=== PATIENT | female | born 1980 | race Caucasian/White ===

== ENCOUNTER 2024-09-22 07:54 | Outpatient (CLI) | payer OTHER, SELFPAY ==
--- OUTSIDE RECORDS SUMMARY | 2024-09-22 08:03 | XMS_ITS ---
Author Organization [facility] Address [address] [place] [address] Care Team Providers Care Casting Inspector Name Role Phone Ryan Ceballos MD Primary Care Provider Unavail Cee Pereira Unavailable [phone] REASON FOR VISIT Rx Medications Medication SIG (Take, Route, Frequency, Duration) Notes Start Date End Date Status XYZAL 5 mg 1 tablet PO daily for 90 days Active Encounters Encounter Location Date Provider Diagnosis [address] [address] 07/08/2024 Cee Jose Allergic rhinitis due to pollen J30.1 Assessments Encounter Date Diagnosis (ICD Code) Assessment Notes Treatment Notes Treatment Clinical Notes Section Notes 07/08/2024 Allergic rhinitis due to pollen (ICD-10 - J30.1) Plan Of Treatment Medication Medication Name Sig Start Date Stop Date Notes XYZAL 5 mg 1 tablet PO daily for 90 days Progress Notes * Colby REZA: 9 (44 yo F)Acc No.[id number]:07/08/2024 Patient: Mariam FORD :1980 A ge:44 Y S ex:Female Address:[address] [place] [address] * Refills Refill XYZAL tablet, 5 mg, PO, 90, 1 tablet, daily, 90 days, Refills=1 * true * Date: Generated for Rosmery kimball/Preeti/Dimasitting on: 0 09/22/2024 08:03 AM OUTSOLE PARAFFINER
--- OUTSIDE RECORDS SUMMARY | 2024-09-22 08:03 | XMS_ITS | Data Portability ---
Author Organization [place] - [facility] [employer], Main Office Address [address] [place] [address] Care Team Providers Care Shingle Packer Name Role Phone STEFFEN PEREZ Primary Care Provider [phone] Assessment No assessment recorded. Plan of Treatment Reminders Order Date Submit Date Provider Last Modified By Organization Details Last Modified Time Details Appointments None recorded. Lab None recorded. Referral endocrinol ogy referral [address] [facility] Endocrinology [facility], [place], [address], 09:33:06 Procedures None recorded. Surgeries None recorded. Imaging None recorded. Medication Orders spironolac tone 100 mg tablet 2022 023 [id number], [address], [address], 09:23:58 Patient TargetsNo targets recorded. Patient InstructionsNo instructions recorded. Reason for Referral Endocrinology Referral for H ashimoto thyroiditis Referring Physician: Shoshana Muñoz, Endocrinology, Encounter Date: 05/11/2023 Results Created Date Observation Date Name Description Value Unit Range Abnormal Flag Note LastModifiedBy Organization Detail LastModifiedTime 07/07/2007/05/2022 US, thyro id No observ ation record ed. [id number] [facility]) [address] [place] [address] [address], [place], [address], 09/27/2022 02:52:04 09/13/1909/05/2022 home sleep study No observ ation record ed. [id number] [facility] (Cardiology) [address], [place], [address], 09/27/2022 02:52:04 Result Notes None recorded. 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 Procedures Surgical History Date Name Laterality Status Provider Name and Address Organization Details Recorded Time 12/03/19 09 delivery completed Not Available [facility] 09/27/2022 02:40:33 09/20/19 05 delivery completed Not Available [facility] 09/27/2022 02:40:33 02/05/20 03 delivery completed Not Available [facility] 09/27/2022 02:40:33 hysteroscopy completed Not Available [facility] 09/27/2022 02:40:33 biopsy of thyroid completed Not Available [facility] 09/27/2022 02:40:33 excision of basal cell carcinoma completed Not Available [facility] 09/27/2022 02:40:33 Unlisted procedure nose completed Not Available [facility] 09/27/2022 02:40:33 Imaging Results Imaging Date Name Status LastModified by Organiz ation Details LastModified Time 09/05/2022 home sleep study completed [id number] [facility] (Cardiology) [address], [place], [address], 09/27/2022 02:52:04 07/05/2022 US, thyroid completed [id number] [facility]) [address], [place], [address], 09/27/2022 02:52:04 Procedure Notes None recorded. Medical Equipment None Reported. Allergies Allergen ID Allergen Name Allergen Category Reaction Reaction Severity Criticality Documentation Date Start Date Code Code System Note Provider Name and Address Organization Details Recorded Time 3964 aspirin medicatio n Not available Not available Not available 09/27/2022 1191 RxNorm HIGH DOSE OF ASPIR IN OVER 81MG Not Available [facility] 02:51:42 Medications Name Sig Start Date Stop Date Status Note LastModified by Organization Details LastModified Time tretinoin 0.045%, hydroquino ne 6%, desonide 0.05%, kojic acid 4% top gel AFFECTED AREA DARK SPOTS face daily for TWO MONTHS 05/11 completed Not Available Not Available Not Available amoxicilli n 500 mg capsule TAKE 2 CAPSULES EVERY DAY BY ORAL ROUTE DIRECTED FOR 10 DAYS. 05/11 completed Not Available Not Available Not Available Aviane 0.1 mg-20 mcg tablet 05/11 completed Not Available Not Available Not Available prednisone 10 mg tablet PLEASE SEE ATTACHED FOR DETAILED DIRECTIO NS 06/28 completed Not Available Not Available Not Available ketoconazo le 2 % shampoo SHAMPOO 2-3X WEEK ON AFFECTED AREAS OF THE SCALP IN SHOWER active Not Available Not Available No t Available famotidine 10 mg tablet Take 1 tablet every day by oral route. 2019 active PEPCID Not Available Not Available Not Avai lable ibuprofen 800 mg tablet 03/29 completed Not Available Not Available Not Available hydrocodon e 5 mg-acetami nophen 325 mg tablet TAKE 1 TABLET BY MOUTH EVERY 4 HOURS NEEDED FOR PAIN 05/11 completed Not Available Not Available Not Available fluconazol e 200 mg tablet TAKE 1 TABLET BY MOUTH EVERY DAY active Not Available Not Available No t Available meloxicam 15 mg tablet TAKE 1 TABLET BY MOUTH EVERY DAY 06/19 completed Not Available Not Available Not Available naltrexone 50 mg tablet TAKE 1 TABLET BY MOUTH AT BEDTIME 05/11 completed Not Available Not Available Not Available ondansetro n HCl 4 mg tablet TAKE 1 TABLET BY MOUTH 1 HOUR PRIOR TO PROCEDUR E 03/29 completed Not Available Not Available Not Available spironolac tone 100 mg tablet one tablet once daily x 90 days 2022 active Not Available Not Available Not Avai lable phentermin e 15 mg capsule TAKE 1 CAPSULE BY MOUTH EVERY DAY 09/20 completed Not Available Not Available Not Available metronidaz ole 500 mg tablet TAKE 1 TABLET BY MOUTH THREE TIMES A DAY FOR 7 DAYS 05/11 completed Not Available Not Available Not Available ciprofloxa sandra 500 mg tablet TAKE 1 TABLET BY MOUTH TWICE A DAY FOR 7 DAYS 05/11 completed Not Available Not Available Not Available propranolo l 10 mg tablet TAKE 1 TABLET BY MOUTH THREE TIMES A DAY NEEDED 05/11 completed Not Available Not Available Not Available dicyclomin e 20 mg tablet TAKE 1 TABLET (20 MG TOTAL) BY MOUTH EVERY 6 HOURS NEEDED FOR ABDOMINA L PAIN active Not Available Not Available No t Available omeprazole 20 mg capsule,de layed release TAKE 1 CAPSULE BY MOUTH EVERY DAY BEFORE BREAKFAS T active Not Available Not Available No t Available folic acid 1 mg tablet TAKE 1 TABLET BY MOUTH EVERY DAY IN THE MORNING active Not Available Not Available No t Available mupirocin 2 % topical ointment MIX 1/2 1 INCH OF OINTMENT WITH SALINE AND IRRIGATE SINUSES NASALLY 2 3 TIMES A DAY 5 DAY(S) 06/28 completed Not Available Not Available Not Available metoprolol succinate ER 25 mg tablet,ext ended release 24 hr TAKE 1 TABLET (25 MG TOTAL) BY MOUTH DAILY. active Not Available Not Available No t Available azelastine 137 mcg (0.1 %) nasal spray SPRAY 2 SPRAYS INTO EACH NOSTRIL TWICE A DAY FOR 30 DAYS active Not Available Not Available No t Available fluocinoni de 0.05 % topical solution APPLY TO THE SCALP EVERY DAY AT BEDTIME FOR TWO WEEKS NEEDED active Not Available Not Available No t Available clobetasol 0.05 % scalp solution APPLY TO RASH ON SCALP NIGHTLY X 2 WEEKS NEEDED active Not Available Not Available No t Available ondansetro n 4 mg disintegra ting tablet TAKE 1 TABLET BY MOUTH EVERY 8 HOURS NEEDED FOR NAUSEA AND VOMITING 05/11 completed Not Available Not Available Not Available fluticason e propionate 50 mcg/actuat ion nasal spray,susp ension 06/28 completed Not Available Not Available Not Available metformin ER 500 mg tablet,ext ended release 24 hr 1 TAB BID 09/20 completed Not Available Not Available Not Available diazepam 5 mg tablet TAKE 3 TABLETS BY MOUTH 1 HOUR BEFORE PROCEDUR E, THEN EVERY 6 HOURS NEEDED 03/29 completed Not Available Not Available Not Available amoxicilli n 875 mg-potassi um clavulanat e 125 mg tablet TAKE 1 TABLET BY MOUTH TWICE A DAY FOR 10 DAYS 05/11 completed Not Available Not Available Not Available Kariva (28) 0.15 mg-0.02 mg (21)/0.01 mg (5) tablet TAKE 1 TABLET BY MOUTH EVERY DAY 05/11 completed Not Available Not Available Not Available Capsule #3 capsule 05/11 completed Not Available Not Available Not Available levocetiri zine 5 mg tablet Once daily active Not Available Not Available No t Available naltrexone HCl (bulk) 100 % powder take 1 mg by mouth once daily at bedtime 05/11 completed Not Available Not Available Not Available olopatadin e 0.6 % nasal spray 03/29 completed Not Available Not Available Not Available sodium,pot assium,mag sulfates 17.5 gram-3.13 gram-1.6 gram oral soln PLEASE SEE ATTACHED FOR DETAILED DIRECTIO NS 05/11 completed Not Available Not Available Not Available Fluzone Quad (PF) 60 mcg (15 mcg x 4)/0.5 mL IM syringe TO BE ADMINIST ERED BY PHARMACI ST FOR IMMUNIZA TION 05/11 completed Not Available Not Available Not Available Flublok Quad (PF) 180 mcg (45 mcg x 4)/0.5 mL IM syringe PHARMACY ADMINIST ERED 05/11 completed Not Available Not Available Not Available Vitals Date Recorded Body height Body mass index (BMI) Body weight Body temperature Respiratory rate Heart rate Systolic blood pressure Diastolic blood pressure Provider Name and Address Organization Details Last Updated DateTime 162.56 cm 23.7 kg/m2 30923.7 5 g 98.2 [degF] 12 /min 84 /min 99 mm[Hg] 73 mm[Hg] Mandy Son RN [place] [facility] 3 09:08:46 Date Recorded Body mass index (BMI) Body height Oxygen saturation Oxygen saturation in Arterial blood by Pulse oximetry Heart rate Body temperature Body weight Systolic blood pressure Diastolic blood pressure Provider Name and Address Organization Details Last Updated DateTime 2 22.4 kg/m2 162.56 cm 98 % 98 % 88 /min 98.5 [degF] 91539.1 6 g 125 mm[Hg] 85 mm[Hg] Not Available [facility] 3 02:44:03 Social History Question Answer Notes LastModified by Organizat ion Details LastModified Time Tobacco Smoking Status Never Smoker Not Available [facility] 09/27/2022 02:36:39 What Is Your Level Of Alcohol Consumption? None [id number] Information not available 09/27/2022 What Is Your Level Of Caffeine Consumption? Moderate [id number] Information not available 09/27/2022 How Much Tobacco Do You Chew? None [id number] Information not available 09/27/2022 In The 14 Days Before Symptom Onset, Have You Had Close Contact With A Laboratory-confir med COVID-19 While That Case Was Ill? No [id number] Information not available 09/27/2022 In The 14 Days Before Symptom Onset, Have You Had Close Contact With A Person Who Is Under Investigation For COVID-19 While That Person Was Ill? No [id number] Information not available 09/27/2022 What Type Of Diet Are You Following? REGULAR [id number] Information not available 09/27/2022 Which Illicit Or Recreational Drugs Have You Used? None [id number] Information not available 09/27/2022 Do You Or Have You Ever Used E-cigarettes Or Vape? 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 [id number] Information not available 09/27/2022 Do You Or Have You Ever Used Smokeless Tobacco? Never Used Smokeless Tobacco MIGRATION.[id number] Information not available 09/27/2022 Do You Use Any Illicit Or Recreational Drugs? No [id number].[id number] Information not available 09/27/2022 Have You Recently Traveled Abroad? No MIGRATION.[id number] Information not available 09/27/2022 Do You Have Any Dietary Restrictions? No MIGRATION.[id number] 1003 Information not available 09/27/2022 Sex: Female Functional Status None recorded. Mental Status None recorded. Family History Relationship Description Onset Age of this Age Resolved Age Notes LastModified by Organization Details LastModified Time Mother Hypertensive disorder [id number] Not available 09/27/2022 02:40:36 Mother Diabetes mellitus [id number] Not available 09/27/2022 02:40:36 Father Hypertensive disorder [id number] Not available 09/27/2022 02:40:36 Maternal Grandmother Malignant tumor of breast [id number] Not available 09/27/2022 02:40:36 Maternal Aunt Malignant tumor of breast MIGRATION.488 [id number] Not available 09/27/2022 02:40:36 Paternal Aunt Malignant tumor of breast MIGRATION.617 [id number] Not available 09/27/2022 02:40:36 Medical History Condition Response HEART ARRHYTHMIA LIVER DISEASE CANCER: SPECIFY Y Gynecological HistoryNo gynecological history recorded. Obstetrics History GPAL:G 0 P 0 0 0 0 Past Encounters Encounter ID Performer Location Encounter Start Date Encounter Closed Date Diagnosis/Indication Diagnosis SNOMED-CT Code Diagnosis ICD10 Code Diagnosis Note [id number] [facility] [address] [place] [address] 11/16/2020 00:00:00 11/16/2020 14:48:53 [id number] _ATHENA_M IGRATION_ DEFAULT_1 _1 , 03/29/2021 00:00:00 03/29/2021 12:59:46 [id number] [facility] [address] [place] [address] 1 06/28/2021 00:00:00 06/28/2021 10:01:17 [id number] [facility] [address] [place] [address] 09/20/2021 00:00:00 09/20/2021 10:35:10 [id number] [facility] [address] [place] [address] 12/06/2021 00:00:00 12/06/2021 10:10:01 [id number] [facility] [address] [place] [address] 06/19/2022 00:00:00 06/19/2022 10:39:56 [id number] Shoshana Muñoz MD [facility] [address] [place] [address] 05/11/2023 08:51:31 05/11/2023 09:33:06 Salo thyroiditis 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 continue on thyroid support with iodine, selenium, magnesium etc. 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 Continue on high protein/lo w fat/nonsta rchy carb diet rich in fruits, veggies and lean meats. She is seeing hepatology in July due to recent finding of cirrhotic appearance of liver on imaging. The recommende d diet should be one of which she can incorporat e on a daily basis that will not modulate her lifestyle - discussed a diet of increased fiber; decreased refined carbohydra pino, trans fats, and saturated fats with focus on monounsatu rated fats such as unprocesse d chicken, turkey, nuts (excluding peanuts) and beans. Spent up to 25 minutes preparing to see the patient (eg, review of tests), obtaining and/or reviewing separately obtained history, performing a medically appropriat e examinatio n and evaluation , counseling and educating the patient, ordering medication s, tests, along with documentin g clinical informatio n in the electronic health record, independen tly interpreti ng results and communicat ing results to the patient. Patient can be followed by PCP - she/he is aware of my resignatio n and last day of May 11. If needed his/her PCP can refer patient to another endocrinol ogist in the area. All questions /concerns answered and refills necessary at visit today. Health Concerns Section Related Observation LastModified by Organization Detai ls LastModified Time None Recorded Concern Status LastModified by Organization Details LastModified Time None Recorded Advance Directives Directive None Recorded Payers Encounter Date Sequence Insurance Name Policy Number Policy [employer] Covered Member ID Duke Member ID Guarantor Name 05/11/[address] [facility] [id number] [place] Jackyyessi [id number] Mariam Tracy Notes Date Note Type Note Provider Name and Address Organization Details Recorded Time 05/11/2023 text/html 43 yo female com es in for follow up in management of hashimotos thyroiditis, PCOS. Last seen in 05/2022 at that time we continued spironolactone 100 mg daily along with thyroid support. She is seeing a liver doctor for her gastric symptoms- went to ER for abdominal pain - thought she might have UC or crohns disease- had workup and nothing was suspicious. On the CT her liver was found to be cirrhotic appearing in nature. She just saw her slurry blender in Mar- nothing really showed up on the labwork other than her renal function. She will be seeing Dr. Salcedo in July. She has gained 14 pounds over the past year. Otherwise she is still on the spironolactone and her Labs from 04/21:testosterone/dh eas lowinsulin normalglucose 88 mg/dLTSH of 1.88 uIU/mlFT4 of 1.28 ng/dLFT3 of 3.0 pg/ML Shoshana Muñoz MD [address] [facility] [address], [place], [address], [facility] [employer] 05/11/2023 11:09:01 OBGyn Episode No OBEpisode recorded.
--- OUTSIDE RECORDS SUMMARY | 2024-09-22 08:04 | XMS_ITS ---
Author Organization [facility] Address [address] [place] [address] Care Team Providers Care Highway Patrol Commander Name Role Phone Ryan Ceballos MD Primary Care Provider Unavail able Cee Jose Unavailable [phone] REASON FOR VISIT Patch testing Medications Medication SIG (Take, Route, Frequency, Duration) Notes Start Date End Date Status Triamcinolone Acetonide 0.1 % 1 application Externally Twice a day for 7 days 07/01/2024 Active Encounters Encounter Location Date Provider Diagnosis [address] [address] 07/01/2024 Cee Jose Rash and other nonspecific skin eruption R21 Assessments Encounter Date Diagnosis (ICD Code) Assessment Notes Treatment Notes Treatment Clinical Notes Section Notes 07/01/2024 Rash and other nonspecific skin eruption (ICD-10 - R21) Plan Of Treatment Medication Medication Name Sig Start Date Stop Date Notes Triamcinolone Acetonide 0.1 % 1 applicat ion Externally Twice a day for 7 days 07/01/2024 TRIAMCINOLONE ACETONIDE TOPICAL 0.1% 1 sharon applied topically 3 times a day for 30 days Progress Notes * Colby REZA: 9 (44 yo F)Acc No.[id number]:07/01/2024 Patient: Mariam FORD :1980 A ge:44 Y S ex:Female Address:[address] [facility], [place] [address] * Refills Stop TRIAMCINOLONE ACETONIDE TOPICAL lotion, 0.1%, applied topically, 1 sharon, 3 times a day, 30 days Start Triamcinolone Acetonide Ointment, 0.1 %, Externally, 30 g, 1 application, Twice a day, 7 days, Refills=0 * true * Date: Generated for Rosmery kimball/Preeti/Dimasitting on: 0 09/22/2024 08:03 AM CONSUMER MARKETING MANAGER
--- OUTSIDE RECORDS SUMMARY | 2024-09-22 08:04 | XMS_ITS | Clinical Summary ---
Author Organization [facility] Address [address] [place] [address] Care Team Providers Care Criminal Justice Teacher Name Role Phone Unavailable Primary Care Provider Unavailabl e Social History Tobacco Use Types Packs/Day Years Used Date Smoking Tobacco: Never Assessed Comments Unknown Sex and Gender Information Value Date Recorded Sex Assigned at Not on file Legal Sex Female 8:23 AM GLASS TUBE BENDER Gender Identity Not on file Sexual Orientation Not on file Plan of Treatment Health Maintenance Due Date Last Done Comments Hepatitis C Virus (HCV) Screening 1980 TdaP Immunization 1980 Hepatitis B Immunization (1 of 3 - 19+ 3-dose series) 1998 Colonoscopy 02/10/2024 Colorectal Cancer Screening 02/10/2024 Influenza Immunization (#1) 03/30/202408/2019, 06/06/2019 SARS-COV-2 Immunization ( season) 2024 Respiratory Syncytial Virus (RSV) Immunization (Adult) (1 - 1-dose 75+ series) 2054 Meningococcal Immunization (ACWY) Aged Out No longer eligible b ased on patient's age to complete this topic Pneumococcal Immunization Combined Aged Out No longer eligible b ased on patient's age to complete this topic Rotavirus Immunization Aged Out No lo nger eligible based on patient's age to complete this topic
--- OUTSIDE RECORDS SUMMARY | 2024-09-22 08:04 | XMS_ITS | Clinical Summary ---
Author Organization [facility] Address [facility] [place] [address] Care Team Providers Care Kiln Burner Helper Name Role Phone Ryan Ceballos MD Primary Care Provider Social History Tobacco Use Types Packs/Day Years Used Date Smoking Tobacco: Never Assessed Comments Unknown Sex and Gender Information Value Date Recorded Sex Assigned at Not on file Legal Sex Female 7:49 PM CDT Gender Identity Not on file Sexual Orientation Not on file Plan of Treatment Health Maintenance Due Date Last Done Comments Cervical Cancer Screening Pap Smear (Age 30 to 64) Every 3 Years 1980 Colorectal Cancer Screening Colonoscopy (10 Years) 1979 Annual Physical 1982 Hepatitis C 1997 DTaP, Tdap and Td Vaccines (1 - Tdap) 1998 Hepatitis B Vaccines (1 of 3 - 19+ 3-dose series) 1998 Cervical Cancer Screening Pap with HPV Testing (Age 30 to 64) Every 5 Years 2009 Cervical Cancer Screening with HPV 2009 Mammogram Screening 2019 COVID-19 Vaccine ( season) 2024 11/05/2020, 10/15/2020 Influenza Adult (#1) 2024 06/08/2022, 05/31/2021, 05/31/2020, Additional history exists HPV Vaccines Aged Out No longer eligi ble based on patient's age to complete this topic Meningococcal B Vaccine Aged Out No l onger eligible based on patient's age to complete this topic Meningococcal Vaccine Aged Out No yumiko jesus eligible based on patient's age to complete this topic Pneumococcal Vaccine: Pediatrics (0 to 5 Years) and At-Risk Patients (6 to 64 Years) Aged Out No longer eligible based on patient's age to complete this topic RSV Immunizations Under 20 Months Aged Out No longer eligible based on patient's age to complete this topic Insurance [facility] Care Teams Kiln Burner Helper Relationship Specialty Start Date End Date Ryan Ceballos MD [address] [place] [address] PCP - General 07/28/16
--- OUTSIDE RECORDS SUMMARY | 2024-09-22 08:05 | XMS_ITS | Data Portability ---
Author Organization [facility], TELEHE[facility] VISIT Address [address] [place] [address] Assessment No assessment recorded. Plan of Treatment Reminders Order Date Submit Date Provider Last Modified By Organization Details Last Modified Time Details Appointments None recorded. Lab rapid strep group A, throat 2022 023 [address] Main Office, [address] [place], [address], 14:56:06 Referral None recorded. Procedures None recorded. Surgeries None recorded. Imaging None recorded. Medication Orders amoxicillin 500 mg capsule 2022 023 [facility] #[id number], [address], [place], [address], 14:56:08 Patient TargetsNo targets recorded. Patient InstructionsNo instructions recorded. Reason for Referral None Reported. Results Created Date Observation Date Name Description Value Unit Range Abnormal Flag Note LastModifiedBy Organization Detail LastModifiedTime 11/04/1911/03/2022 rapid strep group A, throa t Strep positi ve Not Available Main Office [address] [place], [address], 11/03/2022 14:40:58 Result Notes None recorded. Medical Equipment None Reported. Allergies No known drug allergies Medications Name Sig Start Date Stop Date Status Note LastModified by Organization Details LastModified Time binaxnow covid-19 ag card home test kit active Not Available Not Available Not Available amoxicillin 500 mg capsule TAKE 2 CAPSULES EVERY DAY BY ORAL ROUTE DIRECTED FOR 10 DAYS. active Not Available Not Available No t Available Aviane 0.1 mg-20 mcg tablet active Not Available Not Available Not Available ketoconazole 2 % shampoo SHAMPOO 2-3X WEEK ON AFFECTED AREAS OF THE SCALP IN SHOWER active Not Available Not Available No t Available fluconazole 150 mg tablet Take 1 tablet every day by oral route as directed for 1 day, for vaginitis. active Not Available Not Available N ot Available hydrocodone 5 mg-acetamino phen 325 mg tablet TAKE 1 TABLET BY MOUTH EVERY 4 HOURS NEEDED FOR PAIN active Not Available Not Available No t Available fluconazole 200 mg tablet TAKE 1 TABLET BY MOUTH EVERY DAY active Not Available Not Available No t Available meloxicam 15 mg tablet TAKE 1 TABLET BY MOUTH EVERY DAY active Not Available Not Available No t Available naltrexone 50 mg tablet active Not Available Not Available Not Available spironolacto ne 100 mg tablet active Not Available Not Available Not Available metronidazol e 500 mg tablet TAKE 1 TABLET BY MOUTH THREE TIMES A DAY FOR 7 DAYS active Not Available Not Available N ot Available ciprofloxaci n 500 mg tablet TAKE 1 TABLET BY MOUTH TWICE A DAY FOR 7 DAYS active Not Available Not Available No t Available ciclopirox 8 % topical solution APPLY TO AFFECTED NAILS ONCE DAILY active Not Available Not Available No t Available alprazolam 0.5 mg tablet TAKE 1 TABLET DAILY active Not Available Not Available No t Available dicyclomine 20 mg tablet TAKE 1 TABLET BY MOUTH TWICE A DAY active Not Available Not Available No t Available omeprazole 20 mg capsule,yovany yed release TAKE 1 CAPSULE BY MOUTH EVERY DAY BEFORE BREAKFAST active Not Available Not Available No t Available folic acid 1 mg tablet TAKE 1 TABLET BY MOUTH EVERY DAY IN THE MORNING active Not Available Not Available No t Available metoprolol succinate ER 25 mg tablet,exten ded release 24 hr TAKE 1 TABLET (25 MG TOTAL) BY MOUTH DAILY. active Not Available Not Available No t Available azelastine 137 mcg (0.1 %) nasal spray SPRAY 2 SPRAYS INTO EACH NOSTRIL TWICE A DAY FOR 30 DAYS active Not Available Not Available Not Available ondansetron 4 mg disintegrati ng tablet TAKE 1 TABLET BY MOUTH EVERY 8 HOURS NEEDED FOR NAUSEA AND VOMITING active Not Available Not Available No t Available amoxicillin 875 mg-potassium clavulanate 125 mg tablet TAKE 1 TABLET BY MOUTH TWICE A DAY FOR 10 DAYS active Not Available Not Available No t Available Kariva (28) 0.15 mg-0.02 mg (21)/0.01 mg (5) tablet active Not Available Not Available Not Available Capsule #3 capsule active Not Available Not Available Not Available levocetirizi ne 5 mg tablet active Not Available Not Available Not Available sodium,potas sium,mag sulfates 17.5 gram-3.13 gram-1.6 gram oral soln PLEASE SEE ATTACHED FOR DETAILED DIRECTIONS active Not Available Not Available N ot Available Vitals None Recorded Social History None recorded. Functional Status None recorded. Mental Status None recorded. Family History Nothing Reported. Medical History No medical history recorded. Gynecological HistoryNo gynecological history recorded. Obstetrics History GPAL:G 0 P 0 0 0 0 Past Encounters Encounter ID Performer Location Encounter Start Date Encounter Closed Date Diagnosis/Indication Diagnosis SNOMED-CT Code Diagnosis ICD10 Code Diagnosis Note [id number] Nasrin Butler MD Main Office [address] [place] [address] 11/03/2022 14:20:19 11/03/2022 15:04:46 Streptococcal sore throat 08871363 J02.0 Health Concerns Section Related Observation LastModified by Organization Detai ls LastModified Time None Recorded Concern Status LastModified by Organization Details LastModified Time None Recorded Advance Directives Directive None Recorded Payers Encounter Date Sequence Insurance Name Policy Number Policy [employer] Covered Member ID [employer] Member ID Guarantor Name 11/03/2022 1 [facility] Warner Fernándezpilloyessi [id number] Warner Molina Notes Date Note Type Note Provider Name and Address Organization Details Recorded Time 11/03/2022 text/html Patient here for nurse-only visit {{vaccination l ab test*}}. Nasrin Butler MD [address] [facility], [place], [address], [facility] [place] [facility] 11/03/2022 14:56:25 OBGyn Episode No OBEpisode recorded.
--- OUTSIDE RECORDS SUMMARY | 2024-09-22 08:05 | XMS_ITS | Clinical Summary ---
Author Organization [facility] Address [address] [place]: Epic Prelude ADT QUETA SIMEON [address] Care Team Providers Care Appliance Repairer Name Role Phone Unavailable Primary Care Provider Unavailabl e Social History Tobacco Use Types Packs/Day Years Used Date Smoking Tobacco: Never Assessed Comments Unknown Sex and Gender Information Value Date Recorded Sex Assigned at Not on file Legal Sex Female 3:41 AM [employer] Gender Identity Not on file Sexual Orientation Not on file Plan of Treatment Health Maintenance Due Date Last Done Comments DTAP/TDAP/TD VACCINES (1 - Tdap) 1998 HEPATITIS B VACCINES (1 of 3 - 19+ 3-dose series) 1998 CERVICAL CANCER SCREENING 2009 BREAST CANCER SCREENING 2019 COLORECTAL SCREENING 02/10/2024 Colorectal Cancer Screening 02/10/2024 FIT-DNA Q 3 years 02/10/2024 FIT/FOBT Q 1 year 02/10/2024 Flex Sig/CT Colonography Q 5 years 02/10/2024 INFLUENZA VACCINE (#1) 2024 HPV VACCINES Aged Out No longer eligi ble based on patient's age to complete this topic
--- OUTSIDE RECORDS SUMMARY | 2024-09-22 08:05 | XMS_ITS ---
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 S/p sinus surgery in 02/2022. Previously on SCIT >5 years. Having more congestion this month., OAS f/u, oral itching with almonds and walnuts., Hx of GI distress with multiple foods, doing well with no interval issues. Medications Medication SIG (Take, Route, Frequency, Duration) Notes Start Date End Date Status Saline Mist Gilbert 0.65 % 2 spray(s) intranasally 4 times a day for 30 day(s) Not-Taking Pepcid 40 MG 1 tab(s) orally once a day (at bedtime) Not-Taking Xyzal Allergy 24HR 5 MG 1 tablet PO daily for 90 day(s) Not-Taking Triamcinolone Acetonide 55 MCG/ACT 2 spray(s) intranasally twice a day for 90 days Not-Taking OMEPRAZOLE 20 mg 1 cap(s) orally once a day for 30 day(s) Not-Taking Triamcinolone Acetonide 0.1 % 1 sharon applied topically 3 times a day for 7 day(s) Active Azelastine HCl 137 MCG/SPRAY 2 spray(s) intranasally 2 times a day for 30 day(s) Active Spironolactone 25 MG 1 tab(s) orally 2 times a day for 30 day(s) Active Nasacort Allergy 24HR 55 MCG/ACT 2 spray(s) intranasally once a day for 30 day(s) Active Xyzal Allergy 24HR 5 MG 1 tablet PO daily for 90 day(s) Active Omeprazole 20 MG 1 cap(s) orally once a day for 30 day(s) Active Metoprolol Succinate ER 25 MG 1 tab(s) orally once a day for 30 day(s) Active Azelastine HCl 137 MCG/SPRAY 2 spray(s) intranasally 2 times a day for 30 day(s) Not-Taking Folic Acid 1 MG 1 tab(s) orally once a day for 30 day(s) Active SIT (TRADITIONAL) VARIABLE PER SCHEDULE SC PER SCHEDULE *Please review for potential replacement for e-prescription and drug interaction check* Not-Taking AZELASTINE HYDROCHLORIDE NASAL 137 mcg/inh 2 spray(s) intranasally 2 times a day for 30 day(s) Not-Taking SALINE MIST 0.65% 2 spray(s) intranasally 4 times a day for 30 day(s) Active Kariva 0.15-0.02/0.01 MG (21/5) 1 tab(s) orally once a day Not-Taking TRIAMCINOLONE ACETONIDE NASAL 55 mcg/inh 2 spray(s) intranasally twice a day for 90 days Active AZELASTINE HYDROCHLORIDE NASAL 137 mcg/inh 2 spray(s) intranasally 2 times a day for 30 day(s) Active NASACORT ALLERGY 24HR 55 mcg/inh 2 spray(s) intranasally once a day for 30 day(s) Not-Taking XYZAL 5 mg 1 tablet PO daily for 90 day(s) Not-Taking XYZAL 5 mg 1 tablet PO daily for 90 day(s) Active KARIVA biphasic 1 tab(s) orally once a day Not-Taking NASAL WASHES N/A as directed intranasally Qday for 30 Active TRIAMCINOLONE ACETONIDE TOPICAL 0.1% 1 sharon applied topically 3 times a day for 7 day(s) Active FOLIC ACID 1 mg 1 tab(s) orally once a day for 30 day(s) Not-Taking METOPROLOL SUCCINATE ER 25 mg 1 tab(s) orally once a day for 30 day(s) Not-Taking PEPCID 40 mg 1 tab(s) orally once a day (at bedtime) Not-Taking SPIRONOLACTONE 25 mg 1 tab(s) orally 2 times a day for 30 day(s) Not-Taking Social History Tobacco Use: Social History Observation Description Date Details (start date - stop date) Never Smoker NA - NA Tobacco Control (Standard) Question Answer Notes Tobacco use: Nonsmoker Vital Signs Blood pressure systolic 106 mm Hg 06/09/20 24 Blood pressure diastolic 74 mm Hg 024 Height 64.25 in 06/09/2024 Weight 144 lbs 06/09/2024 BMI 24.52 kg/m2 06/09/2024 Oximetry 97 % 06/09/2024 Encounters Encounter Location Date Provider Diagnosis [address] [address] 06/09/2024 Cee Young Rash and other non specific skin eruption R21 ; Allergic contact dermatitis due to other agents L23.89 ; Allergic contact dermatitis due to metals L23.0 ; Allergic rhinitis due to pollen J30.1 ; Allergic rhinitis due to animal (cat) (dog) hair and dander J30.81 ; Other allergic rhinitis J30.89 ; Other chronic allergic conjunctivitis H10.45 ; Dermatitis due to ingested food L27.2 ; Other chronic sinusitis J32.8 and Allergy status to analgesic agent status Z88.6 Assessments Encounter Date Diagnosis (ICD Code) Assessment Notes Treatment Notes Treatment Clinical Notes Section Notes 06/09/2024 Rash and other nonspecific skin eruption (ICD-10 - R21) Descripition of rash seems c/w dyshidrotic eczema but she has had flares to products concerning for ACD. Patch testing was initiated Sunday using [employer] test patch testing delivery system (most common topical allergens causing delayed-type hypersensitivity reactions). Keep back dry and avoid topical and oral steroids. Results today as below. Clearly allergic to gold- has had prior reactions to gold jewelry. Printed information on how to recognize and avoid these contact allergens was provided to the patient, and safe product lists from the ACDS will be e-mail to him separately -Resume TAC if needed. Continue emollients 06/09/2024 Allergic contact dermatitis due to other agents (ICD-10 - L23.89) 06/09/2024 Allergic contact dermatitis due to metals (ICD-10 - L23.0) 06/09/2024 Allergic rhinitis due to pollen (ICD-10 - J30.1) Mariam returns for further managment of her ARC. Mariam clearly suffers from atopic disease based upon history and our prior skin testing. She stopped SCIT in July 2018 after >7 years on monthly maintenance dosing. - s/p sinus surgery 03/24/22 - doing well off SCIT she still requires daily meds. Discussed restarting SCIT with reformulated vials. wants to hold off on monitor symptoms. 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 Noted to pass multiple OFC to different nuts, including almond with only otic itching; mouth itching noted with hazelnut (Nutella). Discussed resuming SCIT for interval symptoms and continue on medications as above 06/09/2024 Other chronic sinusitis (ICD-10 - J32.8) Sinus CT from January 2017 positive for mild maxillary sinusitis (R>L), s/p 3 weeks of Biaxin. Last flare in September 2017 responded to Medrol Dosepak and sinus rinses, no antibiotics needed. Most recent CT showed continued sinusitis. S/p ENT eval with surgery, as above. - continue on above meds and monitor for infections - consider PIDD workup if symptoms return 06/09/2024 Allergy status to analgesic agent status (ICD-10 - Z88.6) Mariam's remote history of adverse reaction to aspirin meets clinical criteria for drug anaphylaxis. Most cases of aspirin-induced anaphylaxis are drug-specfic rather than class-specific, so it does not surprise me that she tolerates NSAIDs without problems. In September 2016 Dr. Trevizo peformed physician-supervise d, oral graded medication challenge to aspirin with a target dose of 80 mg. She PASSED the 2-step challenge without reaction after >3 total hours of observation. She should now be able to safely take up to 81 mg of aspirin daily. At this point I do not know if she can tolerate aspirin doses >81 mg 06/09/2024 Other Plan Of Treatment Medication Medication Name Sig Start Date Stop Date Notes SALINE MIST 0.65% 2 spray(s) intranasa lly 4 times a day for 30 day(s) TRIAMCINOLONE ACETONIDE NASA L 55 mcg/inh 2 spray(s) intranasally twice a day for 90 days AZELASTINE HYDROCHLORIDE KANG AL 137 mcg/inh 2 spray(s) intranasally 2 times a day for 30 day(s) XYZAL 5 mg 1 tablet PO daily fo r 90 day(s) NASAL WASHES N/A as directed intranas ally Qday for 30 TRIAMCINOLONE ACETONIDE TOPICAL 0.1% 1 sharon applied topically 3 times a day for 7 day(s) Treatment Notes Assessment Notes Rash and other nonspecific skin eruption Descripition of rash seems c/w dyshidrotic eczema but she has had flares to products concerning for ACD. Patch testing was initiated Sunday using [employer] test patch testing delivery system (most common topical allergens causing delayed-type hypersensitivity reactions). Keep back dry and avoid topical and oral steroids. Results today as below. Clearly allergic to gold- has had prior reactions to gold jewelry. Printed information on how to recognize and avoid these contact allergens was provided to the patient, and safe product lists from the ACDS will be e-mail to him separately -Resume TAC if needed. Continue emollients Allergic rhinitis due to pollen Mariam returns for further managment of her ARC. Mariam clearly suffers from atopic disease based upon history and our prior skin testing. She stopped SCIT in July 2018 after >7 years on monthly maintenance dosing. - s/p sinus surgery 03/24/22 - doing well off SCIT she still requires daily meds. Discussed restarting SCIT with reformulated vials. wants to hold off on monitor symptoms. Wants to continue to monitor - follow-up in 6 months Allergic rhinitis due to ani mal (cat) (dog) hair and dander Follow allergen avoidance and meds, and consider resuming SCIT as adjunctive therapy Other allergic rhinitis Follow allergen avoidance and meds, and consider resuming SCIT as adjunctive therapy Other chronic allergic conjunctivitis Fo llow allergen avoidance and meds, and consider resuming SCIT as adjunctive therapy Dermatitis due to ingested food Large history of OAS to multiple foods. Noted to pass multiple OFC to different nuts, including almond with only otic itching; mouth itching noted with hazelnut (Nutella). Discussed resuming SCIT for interval symptoms and continue on medications as above Other chronic sinusitis Sinus CT from January 2017 positive for mild maxillary sinusitis (R>L), s/p 3 weeks of Biaxin. Last flare in September 2017 responded to Medrol Dosepak and sinus rinses, no antibiotics needed. Most recent CT showed continued sinusitis. S/p ENT eval with surgery, as above. - continue on above meds and monitor for infections - consider PIDD workup if symptoms return Allergy status to analgesic agent status Mariam's remote history of adverse reaction to aspirin meets clinical criteria for drug anaphylaxis. Most cases of aspirin-induced anaphylaxis are drug-specfic rather than class-specific, so it does not surprise me that she tolerates NSAIDs without problems. In September 2016 Dr. Trevizo peformed physician-supervised, oral graded medication challenge to aspirin with a target dose of 80 mg. She PASSED the 2-step challenge without reaction after >3 total hours of observation. She should now be able to safely take up to 81 mg of aspirin daily. 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 Progress Notes * Hernando REZAaDOB: [birth year] (44 yo F)Acc No.[id number]:06/09/2024 Progress Note Patient: Mariam FORD Provider: Jalen Jose PA-C :1980 A ge:44 Y S ex:Female Date:06/09/2024 Address:[address] [place], [place] [id number] Pcp:Ryan Ceballos MD Subjective: * Chief Complaints: * O ngoing hand rash marked by small blisters - worse around one of her nail beds - here for 72 hour patch test readARC f/u, continues Xyzal, Nasacort, Azelastine and Saline sprays/gels. S/p sinus surgery in 02/2022. Previously on SCIT >5 years. Having more congestion this month. OAS f/u, oral itching with almonds and walnuts.Hx of GI distress with multiple foods, doing well with no interval issues. * HPI: * Introduction: I had the pleasure of seeing Colin Reza, a 40 y/o female with a history of ARC, IBS, GERD, chronic sinusitis, and multiple food sensitization who returns today for interval evaluation and management. Mariam has been lost in f/u, last evaluated by BETHANY Liu in 09/2018. She followed with Dr. Trevizo, but is now returning to re-establish care. She is present with her daughter for today's visit. She is new to me. Mariam is doing okay since last seen in office. Re ARC: Mariam reports chronic right-sided nasal congestions, despite current medications (Xyzal, Flonase BID). Previously on SCIT for >5 years, with noted improvement in her symptoms, but reports congestion has never really ended. She also reports bilateral ear fullness, which is worse on the right compared to the left. She has had prior CT performed with showed mild opacities of the right ethmoid sinuses (2016). She was treated with Biaxin at the time with improvement. She denies any pain, tenderness, or colored nasal drainage currently. She denies any interval sinus infections. She has been evaluated by ENT (2016) with normal results. She is considering resuming SCIT, but is fearful given her prior hx of large local reactions, despite triple therapy premedication and prior hx of reactions. She reports this spring has been not well for her, given the chronic nasal congestion. Of note, Mariam was also evaluated for multiple food allergies/sensitization, given her hx of GI distress, oral symptoms, and rash. She has passed OFC to lentils (05/2018), walnut (04/2018), almond (04/2018), and peanut (04/2018). She did have otic itching with almond challenge, but no other associated symptoms. Given the cross-reaction with almond and hazelnut, she later ingested Nutella and developed oral itching, c/w OAS. Of note, Mariam also had chronic GI complaints including abdominal pain/cramping, bloating, gas, alternating constipation and diarrhea and mucous in stools. She was treated for IBS and GERD, but still having symptoms (2013). She is now doing well with minimal issues. Of note, on 10/09/16 Mariam PASSED oral medication challenge to baby aspirin, done because she had been recently diagnosed with probable polycythemia vera and her fermentologist at [facility] wanted to be able to start her on a daily baby aspirin if possible. She has since had repeat normal hemoglobin levels so PV no longer suspected and aspirin never started. Today, she reports no fevers, chills, night sweats or other constitutional symptoms encid= [id number] >Mariam Reza, a 44 y/o female with a history of ARC, IBS, GERD, chronic sinusitis, and multiple food sensitization who returns today for interval evaluation and management. Here for 168-hour patch test read. Off shots she has been doing ok but seasonally she still requires additional meds.Spring is the worst. S he continues Xyzal and Nasacort daily. She is s/p bilateral turbinectomy and small septal shaving on the right side, with right turbinate cyst removed on 03/24. S/p SCIT >5 years. She has had no interval issues/rashes with almonds, as previously with facial itching after [place] with almond rum in it. She is having more hand dermatitis, worse around her nail bed. Nails are painted. Put TAC ointment with a band-aid on top and it helps like magic. Trying to work on daily moisturizing. Of note, she had several GI issues with several foods, but has since passed multiple food challenges. No interval neck rashes since last seen. Previously with rash to neck, after use of new makeup removal wipes. Today, she reports no fevers, chills, night sweats or other constitutional symptoms. * ROS: A LLERGY: Positive p er the HPI and history, otherwise unremarkable.? S PECIAL SENSES: Positve for r inging in ears, loss of balance, itching in ears, itching eyes. C ONSTITUTIONAL: Positive for n one. E NT: Positive p er the HPI and history, otherwise unremarkable.? R ESPIRATORY: Positive for p er the HPI and history, otherwise unremarkable. O PHTHALMOLOGY: Positive for p er the HPI and history, otherwise unremarkable. E NDOCRINOLOGY: Positive for n one. C ARDIOLOGY: Positive for h eartburn. G ASTROENTEROLOGY: Positive for n one. U ROLOGY: Positive for n one. D ERMATOLOGY: Positive for n one. N EUROLOGY: Positive for n one. H EMATOLOGY/LYMPH: Positive for g landular swelling, glandular tenderness.? M USCULOSKELETAL: Positive for n one. P SYCHOLOGY: Positive for n one. M LEIGHANN REPRODUCTIVE: Positive for N /A. F EMALE REPRODUCTIVE: Positive for n one. A ll other review of systems per the HPI and history, otherwise unremarkable. Reviewed. * Medical History: * Surgical History: C -section 2002, 2004, 2008Wisdom teeth removed iopsy thyroid 08/28/2015sinus surgery 02/2021 * Hospitalization/Major Diagno stic Procedure: P neumonia 1989Childbirth 2002, 2004, 2008 * Family History: F ather: alive, diagnosed with Cancer. M other: alive. S iblings: alive. C hildren: alive, diagnosed with Allergic rhinitis due to allergen, Atopic asthma w/o mention of status asthmaticus or acute exacerbation. 1 sister(s) . 1 son(s) , 2 daughter(s) . . Patient denies family history of asthma, cancer, cystic fibrosis, diabetes, emphysema, heart disease. * Social History: M arital Status m arried, children:3. A lcohol Screening n one. C affeine: yes. S moking H ave you ever smoked tobacco:: never smoked. R ecreational drug use n o. E xercise r unning/jogging, aerobics. O ccupation R N. O ccup. exposure: no. E nvironmental History P migdalia [place], the home is 2.5 years old, she has lived there for the past 2.5 years, she lives with her and kids, the home has a basement, no water damage, no smokers, central air, forced air heating. E nvironmental History 2: [id number] carpeting that is 2.5 years old, her mattress is 6 years old, her pillow is made of buckwheat and is 1.5 year, her sheets, pillowcases are made of cotton. H ome description F ireplace used during winter months, no woodburning stove, she vacuums the home, no air purification system, no dust-proof encasings, no humidifier, no pets, no fabric softeners, 8 plants in bedrooms and study. T obacco Control (Standard) Tobacco use: N onsmoker * Medications: T akingTRIAMCINOLONE ACETONIDE TOPICAL 0.1% lotion 1 sharon applied topically 3 times a day XYZAL 5 mg tablet 1 tablet PO daily NASAL WASHES N/A 1 quart of sterilized tap water or distilled water, 1 tsp NaCl, 1 pinch of baking soda as directed intranasally Qday SALINE MIST 0.65% spray 2 spray(s) intranasally 4 times a day TRIAMCINOLONE ACETONIDE NASAL 55 mcg/inh spray 2 spray(s) intranasally twice a day AZELASTINE HYDROCHLORIDE NASAL 137 mcg/inh spray 2 spray(s) intranasally 2 times a day Omeprazole 20 MG Capsule Delayed Release 1 cap(s) orally once a day Folic Acid 1 MG Tablet 1 tab(s) orally once a day Metoprolol Succinate ER 25 MG Tablet Extended Release 24 Hour 1 tab(s) orally once a day Spironolactone 25 MG Tablet 1 tab(s) orally 2 times a day Nasacort Allergy 24HR 55 MCG/ACT Aerosol 2 spray(s) intranasally once a day Xyzal Allergy 24HR 5 MG Tablet 1 tablet PO daily Triamcinolone Acetonide 0.1 % Lotion 1 sharon applied topically 3 times a day Azelastine HCl 137 MCG/SPRAY Solution 2 spray(s) intranasally 2 times a day Taking TRIAMCINOLONE ACETONIDE TOPICAL 0.1% lotion 1 sharon applied topically 3 times a day Taking XYZAL 5 mg tablet 1 tablet PO daily Taking NASAL WASHES N/A 1 quart of sterilized tap water or distilled water, 1 tsp NaCl, 1 pinch of baking soda as directed intranasally Qday Taking SALINE MIST 0.65% spray 2 spray(s) intranasally 4 times a day Taking TRIAMCINOLONE ACETONIDE NASAL 55 mcg/inh spray 2 spray(s) intranasally twice a day Taking AZELASTINE HYDROCHLORIDE NASAL 137 mcg/inh spray 2 spray(s) intranasally 2 times a day Taking Omeprazole 20 MG Capsule Delayed Release 1 cap(s) orally once a day Taking Folic Acid 1 MG Tablet 1 tab(s) orally once a day Taking Metoprolol Succinate ER 25 MG Tablet Extended Release 24 Hour 1 tab(s) orally once a day Taking Spironolactone 25 MG Tablet 1 tab(s) orally 2 times a day Taking Nasacort Allergy 24HR 55 MCG/ACT Aerosol 2 spray(s) intranasally once a day Taking Xyzal Allergy 24HR 5 MG Tablet 1 tablet PO daily Taking Triamcinolone Acetonide 0.1 % Lotion 1 sharon applied topically 3 times a day Taking Azelastine HCl 137 MCG/SPRAY Solution 2 spray(s) intranasally 2 times a day Not-Taking/PRNPepcid 40 MG Tablet 1 tab(s) orally once a day (at bedtime) Xyzal Allergy 24HR 5 MG Tablet 1 tablet PO daily Saline Mist Gilbert 0.65 % Solution 2 spray(s) intranasally 4 times a day Triamcinolone Acetonide 55 MCG/ACT Aerosol 2 spray(s) intranasally twice a day OMEPRAZOLE 20 mg delayed release capsule 1 cap(s) orally once a day FOLIC ACID 1 mg tablet 1 tab(s) orally once a day METOPROLOL SUCCINATE ER 25 mg tablet, extended release 1 tab(s) orally once a day PEPCID 40 mg tablet 1 tab(s) orally once a day (at bedtime) SPIRONOLACTONE 25 mg tablet 1 tab(s) orally 2 times a day NASACORT ALLERGY 24HR 55 mcg/inh spray 2 spray(s) intranasally once a day XYZAL 5 mg tablet 1 tablet PO daily KARIVA biphasic tablet 1 tab(s) orally once a day AZELASTINE HYDROCHLORIDE NASAL 137 mcg/inh spray 2 spray(s) intranasally 2 times a day Kariva 0.15-0.02/0.01 MG (17/12) Tablet 1 tab(s) orally once a day Azelastine HCl 137 MCG/SPRAY Solution 2 spray(s) intranasally 2 times a day SIT (TRADITIONAL) VARIABLE SEE ATTACHED PER SCHEDULE SC PER SCHEDULE , Notes to Pharmacist: *Please review for potential replacement for e-prescription and drug interaction check*Medication List reviewed and reconciled with the patientNot-Taking/PRN Pepcid 40 MG Tablet 1 tab(s) orally once a day (at bedtime) Not-Taking/PRN Xyzal Allergy 24HR 5 MG Tablet 1 tablet PO daily Not-Taking/PRN Saline Mist Gilbert 0.65 % Solution 2 spray(s) intranasally 4 times a day Not-Taking/PRN Triamcinolone Acetonide 55 MCG/ACT Aerosol 2 spray(s) intranasally twice a day Not-Taking/PRN OMEPRAZOLE 20 mg delayed release capsule 1 cap(s) orally once a day Not-Taking/PRN FOLIC ACID 1 mg tablet 1 tab(s) orally once a day Not-Taking/PRN METOPROLOL SUCCINATE ER 25 mg tablet, extended release 1 tab(s) orally once a day Not-Taking/PRN PEPCID 40 mg tablet 1 tab(s) orally once a day (at bedtime) Not-Taking/PRN SPIRONOLACTONE 25 mg tablet 1 tab(s) orally 2 times a day Not-Taking/PRN NASACORT ALLERGY 24HR 55 mcg/inh spray 2 spray(s) intranasally once a day Not-Taking/PRN XYZAL 5 mg tablet 1 tablet PO daily Not-Taking/PRN KARIVA biphasic tablet 1 tab(s) orally once a day Not-Taking/PRN AZELASTINE HYDROCHLORIDE NASAL 137 mcg/inh spray 2 spray(s) intranasally 2 times a day Not-Taking/PRN Kariva 0.15-0.02/0.01 MG (17/12) Tablet 1 tab(s) orally once a day Not-Taking/PRN Azelastine HCl 137 MCG/SPRAY Solution 2 spray(s) intranasally 2 times a day Not-Taking/PRN SIT (TRADITIONAL) VARIABLE SEE ATTACHED PER SCHEDULE SC PER SCHEDULE , Notes to Pharmacist: *Please review for potential replacement for e-prescription and drug interaction check*Medication List reviewed and reconciled with the patient * Allergies: A spirin: hives, dyspnea, periorbital edema (tolerates other NSAIDs) - Allergyno[Allergies Verified] Objective: * Vitals: B P:106/74mm Hg, HR:80/min, Pulse Oximetry:97%, Ht: 64.25 in, Wt: 144 lbs, BMI:24.52Index. * Examination: G eneral examination: General appearance: p leasant, well-developed, well-nourished, female, speaking in full sentences, with age appropriate activity. HEENT: p upils equal, round, and reactive to light and accommodation, conjunctiva are normal bilaterally, notenderness to palpation of the sinuses, TMs clear bilaterally without evidence of infection, turbinates 2+ swollen and erythematous inferiorly bilaterally, ,no polyps noted, no septal perforation, posterior oropharynx is erythematous and cobblestoning is present, tonsils are present, no tongue swelling, and uvula is midline. Neurologic exam: u nremarkable. Skin: n ormal, no rash, dermatographism, urticaria, angioedema. Peripheral pulses: n ormal (2+) bilaterally. Back: n ormal, no CVA tenderness. Extremities: n ormal ROM, no clubbing, no cyanosis, no edema. Influenza Vaccine not administered Assessment: * Assessment: 1. R lizbeth and other nonspecific skin eruption - R21 (Primary) 2 . A llergic contact dermatitis due to other agents - L23.89 3 . A llergic contact dermatitis due to metals - L23.0 4 . A llergic rhinitis due to pollen - J30.1 5. A llergic rhinitis due to animal (cat) (dog) hair and dander - J30.81 6 . O ther allergic rhinitis - J30.89 7 . O ther chronic allergic conjunctivitis - H10.45 8 . 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 Other chronic sinusitis - J32.8 1 0. A llergy status to analgesic agent status - Z88.6 Plan: * Treatment: 2. A llergic rhinitis due to pollen Continue XYZAL tablet, 5 mg, 1 tablet, PO, daily, 90 day(s), 90 tab(s), Refills 1; C ontinue NASAL WASHES 1 quart of sterilized tap water or distilled water, 1 tsp NaCl, 1 pinch of baking soda, N/A, as directed, intranasally, Qday, 30, QS, Refills PRN; C ontinue SALINE MIST spray, 0.65%, 2 spray(s), intranasally, 4 times a day, 30 day(s); C ontinue TRIAMCINOLONE ACETONIDE NASAL spray, 55 mcg/inh, 2 spray(s), intranasally, twice a day, 90 days, Refills 0; C ontinue AZELASTINE HYDROCHLORIDE NASAL spray, 137 mcg/inh, 2 spray(s), intranasally, 2 times a day, 30 day(s), 1, Refills 3. Notes:Mariam returns for further managment of her ARC. Mariam clearly suffers from atopic disease based upon history and our prior skin testing. She stopped SCIT in July 2018 after >7 years on monthly maintenance dosing. - s/p sinus surgery 03/24/22 - doing well off SCIT she still requires daily meds. Discussed restarting SCIT with reformulated vials. wants to hold off on monitor symptoms. Wants to continue to monitor - follow-up in 6 months 3. A llergic rhinitis due to animal (cat) (dog) hair and dander Notes:Follow allergen avoidance and meds, and consider resuming SCIT as adjunctive therapy ? 4. O ther allergic rhinitis Notes:Follow allergen avoidance and meds, and consider resuming SCIT as adjunctive therapy ? 5. O ther chronic allergic conjunctivitis Notes:Follow allergen avoidance and meds, and consider resuming SCIT as adjunctive therapy ? 6. D ermatitis due to ingested food Notes:Large history of OAS to multiple foods. Noted to pass multiple OFC to different nuts, including almond with only otic itching; mouth itching noted with hazelnut (Nutella). Discussed resuming SCIT for interval symptoms and continue on medications as above 7. O ther chronic sinusitis Notes: Sinus CT from January 2017 positive for mild maxillary sinusitis (R>L), s/p 3 weeks of Biaxin. Last flare in September 2017 responded to Medrol Dosepak and sinus rinses, no antibiotics needed. Most recent CT showed continued sinusitis. S/p ENT eval with surgery, as above. - continue on above meds and monitor for infections - consider PIDD workup if symptoms return 8. A llergy status to analgesic agent status Notes:Mariam's remote history of adverse reaction to aspirin meets clinical criteria for drug anaphylaxis. Most cases of aspirin-induced anaphylaxis are drug-specfic rather than class-specific, so it does not surprise me that she tolerates NSAIDs without problems. In September 2016 Dr. Trevizo peformed physician-supervised, oral graded medication challenge to aspirin with a target dose of 80 mg. She PASSED the 2-step challenge without reaction after >3 total hours of observation. She should now be able to safely take up to 81 mg of aspirin daily. At this point I do not know if she can tolerate aspirin doses >81 mg * Procedures: P [facility] Testing: (Please insert time stamp) Jett Jazzy crawford Hay 06/09/2024 09:17:24 AM DAIRY PROCESSING SUPERVISOR >. Patch testing ([id number]-Tkczmwhi Core Series) w as performed using the [employer] NA-1000 test patch testing delivery system (most common topical allergens causing delayed-type hypersensitivity reactions), Positive reactions graded: IR (irritant reaction) to , Myroxylon pereirae resin / (Balsam [place]) , ++, Gold(I)sodium thiosulfate dihydrate , at 72 hours, The information from patch testing was placed into the [facility] registry and a report regarding our clinical findings was e-mailed to the patient..? * Procedure Codes: G 8427 DOC MEDS VERIFIED W/PT OR [id number] Bernie Jose Incident-to * Preventive Medicine: Counseling: D iet C ontinue food avoidance: [place] nut, cashew, pistachio, gluten, Journal dietary and environmental contacts. E xercise C ontinue activity as usual. M edication instruction: W atch for side effects of prescribed medications, Injectable epinephrine education and instruction w/ discussion of signs and symptoms of anaphylaxis and reasons to seek urgent or emergent care, Able to return demonstration of self-injectable epinephrine. E ducation: G ENERAL EDUCATION:, Our staff spent an additional 30 minutes in direct contact with the patient educating them on their current diagnoses and proper treatment and prevention of symptoms and the proper use of medications. E ducation 2: A RC EDUCATION:, Our staff discussed the appropriate allergen avoidance measures and medication utilization including upper airway hygiene with nasal washes given the patient's clinical status and diagnoses. P atient education material sent to portal? Y es * Follow Up: 3 Months (Reason: Evaluation and Management) * Billing Information: * Visit Code: 23664 Office Visit, Est Pt., Level 3. Modifiers: 25 * Procedure Codes: G8427 DOC MEDS VERIFIED W/[place]. [id number] Bernie Jose Incident-to. Images * 06/09/2024 patch test 3 * Y PROCESSING SUPERVISOR Sign off status: Completed true * Provider: Jalen Jose PA-C Date: 1 08/09/2023 Generated for Rosmery kimball/Preeti/Derick on: 0 09/22/2024 08:04 AM DAIRY PROCESSING SUPERVISOR History and Physical Notes * HPI (History of Present Illness) Category Sub-Category Detail Notes Category Not es *Introduction I had the pleasure o f seeing Mariam Reza, a 44 y/o female with a history of ARC, IBS, GERD, chronic sinusitis, and multiple food sensitization who returns today for interval evaluation and management. Here for 168-hour patch test read. Off shots she has been doing ok but seasonally she still requires additional meds.Spring is the worst. She continues Xyzal and Nasacort daily. She is s/p bilateral turbinectomy and small septal shaving on the right side, with right turbinate cyst removed on 03/24. S/p SCIT >5 years. She has had no interval issues/rashes with almonds, as previously with facial itching after [place]jito with almond rum in it. She is having more hand dermatitis, worse around her nail bed. Nails are painted. Put TAC ointment with a band-aid on top and it helps like magic. Trying to work on daily moisturizing. Of note, she had several GI issues with several foods, but has since passed multiple food challenges. No interval neck rashes since last seen. Previously with rash to neck, after use of new makeup removal wipes. Today, she reports no fevers, chills, night sweats or other constitutional symptoms Examination Category Sub-Category Detail Notes Category Not es General examination HEENT: pupils equal , round, and reactive to light and accommodation, conjunctiva are normal bilaterally, notenderness to palpation of the sinuses, TMs clear bilaterally without evidence of infection, turbinates 2+ swollen and erythematous inferiorly bilaterally, ,no polyps noted, no septal perforation, posterior oropharynx is erythematous and cobblestoning is present, tonsils are present, no tongue swelling, and uvula is midline Extremities: normal ROM, no clubb ing, no cyanosis, no edema General appearance: pleasant, well-devel oped, well-nourished, female, speaking in full sentences, with age appropriate activity Skin: normal, no rash, king matographism, urticaria, angioedema Neurologic exam: unremarkable Peripheral pulses: normal (2+) bilatera lly Back: normal, no CVA tende rness Influenza Vaccine not administered Reason:: No r suzie specified
--- OUTSIDE RECORDS SUMMARY | 2024-09-22 08:05 | XMS_ITS | Encounter Summary ---
Author Organization [employer] Address 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
--- OUTSIDE RECORDS SUMMARY | 2024-09-22 08:05 | XMS_ITS | Encounter Summary ---
Author Organization [facility] Address [address] [place] [address] Phone Care Team Providers Care Associate Professor Of Chemistry Name Role Phone Ryan Ceballos MD Primary Care Provid er BETHANY Morejon Jr., Denny Andre Primary Care Provide r Ryan Ceballos MD Primary Care Provid er Elisabet Stoddard MD Unavailable [phone] Encounter Details Date Type Department Care Team (Latest Contact Info) Description 12/06/2018 Orders Only [facility] Scanning, Provider Social History Tobacco Use Types Packs/Day Years Used Date Smoking Tobacco: Never Assessed Comments Unknown Sex and Gender Information Value Date Recorded Sex Assigned at Not on file Legal 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 Gender Identity Not on file Sexual Orientation Not on file documented as of this encounter Plan of Treatment Not on file documented as of this encounter Procedures Procedure Name Priority Date/Time Associated Diagnosis Comments SCAN - LABS 12/06/2018 documented in this encounter Results * SCAN - LABS (12/06/2018) us Provider Scanning Final Result documented in this encounter Visit Diagnoses Not on filedocumented in this encounter Additional Health Concerns Infection Onset Date Last Indicated Resolved Time COVID19 Comment:Added from the Screening question BPA, identifying patients that tested positive for COVID in the last 14 days and the result is from a facility outside [facility] . 06/28/2022 06/28/2022 07/08/2022 3:06 AM RECORD PRODUCER documented as of this encounter Care Teams Associate Professor Of Chemistry Relationship Specialty Start Date End Date Ryan Ceballos MD [address] [place] [address] PCP - General 09/15/16 09/25/19 Denny Morejon Jr., PA [address] [place] [address] PCP - General 09/26/19 02/21/21 Ryan Ceballos MD [address] [place] [address] PCP - General 02/22/21 Elisabet Stoddard MD [address] [address] Referring Physician Gynecology 04/01/24 documented as of this encounter
--- OUTSIDE RECORDS SUMMARY | 2024-09-22 08:05 | XMS_ITS | Encounter Summary ---
Author Organization [facility] Care Team Providers Care Seismology Teacher Name Role Phone Ryan Ceballos MD Primary Care Provid er BETHANY Morejon Jr., Robert James Primary Care Provide r Ryan Ceballos MD Primary Care Provid er Elisabet Stoddard MD Unavailable [phone] Encounter Details Date Type Department Care Team (Latest Contact Info) Description 08/21/2016 Orders Only [facility] Provider, MD Diamond [address] [place] [id number] Social History Tobacco Use Types Packs/Day Years Used Date Smoking Tobacco: Never Assessed Comments Unknown Sex and Gender Information Value Date Recorded Sex Assigned at Not on file Legal Sex Female 2:54 AM SENIOR 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 us Historical Provider Final Res ult documented in this encounter Visit Diagnoses Not on filedocumented in this encounter Additional Health Concerns Infection Onset Date Last Indicated Resolved Time COVID19 Comment:Added from the Screening question BPA, identifying patients that tested positive for COVID in the last 14 days and the result is from a facility outside [facility] . 06/28/2022 06/28/2022 07/08/2022 3:06 AM SENIOR RESEARCH CONSULTANT documented as of this encounter Care Teams Seismology Teacher Relationship Specialty Start Date End Date Ryan Ceballos MD [address] [place] [address] PCP - General 09/15/16 09/25/19 Denny Morejon Jr., PA [address] [place] [address] PCP - General 09/26/19 02/21/21 Ryan Ceballos MD [address] [place] [address] PCP - General 02/22/21 Elisabet Stoddard MD [address] [address] Referring Physician Gynecology 04/01/24 documented as of this encounter
--- OUTSIDE RECORDS SUMMARY | 2024-09-22 08:05 | XMS_ITS | Referral Summary ---
Author Organization [facility] Address [address] [place] [address] Care Team Providers Care Grain Manager Name Role Phone Ryan Ceballos MD Primary Care Provid er Elisabet Stoddard MD Unavailable [phone] Encounters Date Type Department Care Team Description 09/17/2024 Results Follow-Up [facility] [address] [facility] 12th [place] [address] [place] [address] Jorge Crespo MD 09/16/2024 11:14 AM GAMES MANAGER - 09/16/2024 11:59 PM GAMES MANAGER Hospital Encounter [facility] Radiology [address] [place] [address] of liver Discharge Disposition: Discharge to home or self care 09/05/2024 Orders Only [facility] [address] [facility] 12th [place] [address] [place] [address] Luisa Hernandez RN Abnormal CT of liver (Primary Dx) 09/05/2024 Telephone Radiology [address] [place] [address] Cee Daniel RT 09/05/2024 Orders Only [facility] [address] [facility] 12th [place] [address] [place] [address] Luisa Hernandez RN Abnormal CT of liver (Primary Dx); Cirrhosis of liver without ascites, unspecified hepatic cirrhosis type (HCC); 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 08/29/2024 8:30 AM GAMES MANAGER Office Visit [facility] Gastroenterology at [address] [place] [address] Dung Davies MD Irritable bowel syndrome with diarrhea (Primary Dx); Cirrhosis of liver without ascites, unspecified hepatic cirrhosis type (HCC); Gastroesophageal reflux disease without esophagitis 08/25/2024 11:30 AM GAMES MANAGER Procedure visit [facility] [address] [facility] 12th [place] [address] [place] [address] Abnormal finding on GI tract imaging 08/25/2024 11:20 AM GAMES MANAGER Office Visit [facility] [address] [facility] 12th [place] [address] [place] [address] Jorge Crespo MD Abnormal finding on GI tract imaging (Primary Dx); Abnormal CT of liver 08/06/2024 12:15 PM GAMES MANAGER Office Visit [facility] [address] [place] [phone] Ryan Ceballos MD Dysfunction of right eustachian tube (Primary Dx) from Last 3 Months Allergies Active Allergy Reactions Criticality Noted Date Comments Aspirin Other (See comments) Reaction: Rash, hives, Medications levocetirizine (XYZAL) 5 mg tablet 9 Active spironolactone (ALDACTONE) 100 mg tablet 1 tablet (100 mg total) daily 9 Active azelastine (ASTELIN) 137 mcg (0.1 %) nasal spray 2 Active triamcinolone (NASACORT) 55 mcg nasal inhaler daily Active dicyclomine (BENTYL) 20 mg tabletIndicatio ns:Abdominal pain TAKE 1 TABLET (20 MG TOTAL) BY MOUTH EVERY 6 HOURS NEEDED FOR ABDOMINAL PAIN 60 tablet 3 3 Active ketoconazole (NIZORAL) 2 % shampoo 3 Active omeprazole (PriLOSEC) 20 mg capsuleIndicati ons:Gastroesoph ageal reflux disease without esophagitis Take 1 capsule (20 mg total) by mouth daily before breakfast 90 capsule 3 4 Active Additional Information Patient not taking.Reported on 09/16/2024 MAGNESIUM ORAL Take by mouth A ctive metoprolol XL (TOPROL-XL) 25 mg extended release tabletIndicatio ns:Tachycardia Take 1 tablet (25 mg total) by mouth daily 90 tablet 3 4 Active folic acid (FOLVITE) 1 mg tablet Take 1 tablet (1,000 mcg total) by mouth every morning 2 025 Discontin ued(Thera py completed ) L gasseri/B bifidum/B longum ([employer] ORAL) Take by mouth daily 025 Discontin ued(Thera py completed ) ferrous sulfate 325 mg (65 mg of elemental iron) tabletIndicatio ns:Iron Deficiency Anemia Take 1 tablet (325 mg total) by mouth daily with breakfast 025 Discontin ued(Thera py completed ) famotidine (PEPCID) 20 mg tablet Take 1 tablet (20 mg total) by mouth nightly 025 Discontin ued(Thera py completed ) Active Problems Problem Noted Date Diagnosed Date Cirrhosis of liver without ascites (CMS/HCC) Assessment & Plan (08/29/2024 9:00 AM GAMES MANAGER): Noted on CT scan November 2022. Patient mentioned she has been told she has fatty liver in the past. Patient has followed up with hepatology, CT scan showed question of liver fibrosis in the left lobe, subsequent liver elastography July 2023 with no evidence of advanced fibrosis or cirrhosis. EGD October 2023 with no varices. -continue to follow up with hepatology Abnormal CT of liver 12/06/2023 Assessment & Plan (12/06/2023 1:55 PM CDT): Noted on CT scan November 2022. Patient mentioned she has been told she has fatty liver in the past. Patient has followed up with hepatology, CT scan showed question of liver fibrosis in the left lobe, subsequent liver elastography July 2023 with no evidence of advanced fibrosis or cirrhosis. EGD October 2023 with no varices. -continue to follow up with hepatology Irritable bowel syndrome with diarrhea Assessment & Plan (08/29/2024 9:09 AM GAMES MANAGER): Abdominal pain off and on for 3-4 years, cramping, associated with diarrhea. She went to the ER May [address] scan while in the ER May 2022 showing ileitis with involvement of the terminal ileum, likely infectious and/or inflammatory. CT enterography November 2022 showed multiple benign liver cysts, slightly nodular surface of the liver raising suspicion for fibrosis/cirrhosis, mild wall thickening and edema of the distal esophagus, and nonobstructing bilateral kidney stones. CRP and ESR were normal July 2022. Colonoscopy September 2022 with mild erythema in the terminal ileum, pathology unremarkable, biopsies negative for microscopic colitis. -avoid NSAIDs -continue Bentyl p.r.n. -low FODMAP diet -Trial of MiraLax daily for 2 weeks Assessment & Plan (12/06/2023 2:10 PM CDT): Abdominal pain off and on for 3-4 years, cramping, associated with diarrhea. She went to the ER May [address] scan while in the ER May 2022 showing ileitis with involvement of the terminal ileum, likely infectious and/or inflammatory. CT enterography November 2022 showed multiple benign liver cysts, slightly nodular surface of the liver raising suspicion for fibrosis/cirrhosis, mild wall thickening and edema of the distal esophagus, and nonobstructing bilateral kidney stones. . CRP and ESR were normal July 2022. Colonoscopy September 2022 with mild erythema in the terminal ileum, pathology unremarkable, biopsies negative for microscopic colitis. -avoid NSAIDs -continue Bentyl p.r.n. -low FODMAP diet Assessment & Plan (08/19/2023 10:24 AM GAMES MANAGER): -xifaxan tid 14 days Allergic rhinitis 08/22/2022 Abdominal pain 08/14/2022 Assessment & Plan (04/09/2023 10:34 AM CDT): Abdominal pain off and on for 3-4 years, getting progressively worse, cramping, associated with diarrhea. She went to the ER May [address] scan as below. EGD September 2022 with irregular Z-line, gastritis, 2 cm hiatal hernia, pathology unremarkable. -avoid NSAIDs -continue omeprazole 20 mg p.o. daily -continue Bentyl p.r.n. -low FODMAP diet Assessment & Plan (11/21/2022 10:34 AM CDT): Abdominal pain off and on for 3-4 years, getting progressively worse. She states it feels like contractions, wakes her up for sleep, can be severe. Associated with nausea vomiting and diarrhea. She went to the ER May [address] scan as below. EGD September 2022 with irregular Z-line, gastritis, 2 cm hiatal hernia, pathology unremarkable. -avoid NSAIDs -continue omeprazole 20 mg p.o. daily -we will order CT enterography given continued abdominal pain and diarrhea and to evaluate for healing of prior ileitis -above workup negative, we will consider HIDA scan -we will refill Bentyl Assessment & Plan (08/14/2022 11:29 AM GAMES MANAGER): Abdominal pain off and on for 3-4 years, getting progressively worse. She states it feels like contractions, wakes her up for sleep, can be severe. Associated with nausea vomiting and diarrhea. She went to the ER May [address] scan as below. -avoid NSAIDs -start omeprazole 20 mg p.o. daily -schedule EGD -The risks (risks of bleeding, infection, perforation requiring surgery, missed polyps/cancer, dental injury, aspiration pneumonia, anesthesia complications such as drug reaction and cardiopulmonary complications including rare chance of ), benefits, and alternatives of the planned procedure were explained to the patient who understands and consents to having procedure done. Gastroesophageal reflux disease without esophagi tis 08/14/2022 Assessment & Plan (08/29/2024 9:00 AM GAMES MANAGER): Chronic GERD, takes PPI daily and Pepcid 40 mg p.o. qhs. -continue omeprazole 20 mg p.o. daily -continue Pepcid p.r.n. -RECOMMENDATIONS given include: anti-reflux maneuvers, Avoid acidic foods like oranges and tomatoes., avoidance of spicy foods, avoid eating 3-4 hours before bed, elevation of the head of the bed, and weight loss Assessment & Plan (12/06/2023 2:05 PM CDT): Chronic GERD, takes PPI daily and Pepcid 40 mg p.o. qhs. -continue omeprazole 20 mg p.o. daily -continue Pepcid p.r.n. -RECOMMENDATIONS given include: anti-reflux maneuvers, Avoid acidic foods like oranges and tomatoes., avoidance of spicy foods, avoid eating 3-4 hours before bed, elevation of the head of the bed, and weight loss Assessment & Plan (08/19/2023 10:21 AM GAMES MANAGER): Chronic GERD, takes Pepcid 40 mg p.o. b.i.d. however this has not controlled her symptoms. She is been on PPI in the past but stopped this due to concern for long-term side effects. Restarted omeprazole and symptoms have resolved. -continue omeprazole 20 mg p.o. daily -continue Pepcid p.r.n. -RECOMMENDATIONS given include: anti-reflux maneuvers, Avoid acidic foods like oranges and tomatoes., avoidance of spicy foods, avoid eating 3-4 hours before bed, elevation of the head of the bed, and weight loss Assessment & Plan (04/09/2023 10:23 AM CDT): Chronic GERD, takes Pepcid 40 mg p.o. b.i.d. however this has not controlled her symptoms. She is been on PPI in the past but stopped this due to concern for long-term side effects. Restarted omeprazole and symptoms have resolved. -continue omeprazole 20 mg p.o. daily -continue Pepcid p.r.n. -RECOMMENDATIONS given include: anti-reflux maneuvers, Avoid acidic foods like oranges and tomatoes., avoidance of spicy foods, avoid eating 3-4 hours before bed, elevation of the head of the bed, and weight loss Assessment & Plan (11/21/2022 10:33 AM CDT): Chronic GERD, takes Pepcid 40 mg p.o. b.i.d. however this has not controlled her symptoms. She is been on PPI in the past but stopped this due to concern for long-term side effects. Restarted omeprazole and symptoms have resolved. -continue omeprazole 20 mg p.o. daily -continue Pepcid p.r.n. -RECOMMENDATIONS given include: anti-reflux maneuvers, Avoid acidic foods like oranges and tomatoes., avoidance of spicy foods, avoid eating 3-4 hours before bed, elevation of the head of the bed, and weight loss Assessment & Plan (08/14/2022 11:30 AM GAMES MANAGER): Chronic GERD, takes Pepcid 40 mg p.o. b.i.d. however this has not controlled her symptoms. She is been on PPI in the past but stopped this due to concern for long-term side effects. -start omeprazole 20 mg p.o. daily -continue Pepcid p.r.n. -RECOMMENDATIONS given include: anti-reflux maneuvers, Avoid acidic foods like oranges and tomatoes., avoidance of spicy foods, avoid eating 3-4 hours before bed, elevation of the head of the bed, and weight loss Abnormal finding on GI tract imaging 08/14/2022 Assessment & Plan (08/19/2023 10:21 AM GAMES MANAGER): CT scan while in the ER May 2022 showing ileitis with involvement of the terminal ileum, likely infectious and/or inflammatory. CT enterography November 2022 showed multiple benign liver cysts, slightly nodular surface of the liver raising suspicion for fibrosis/cirrhosis, mild wall thickening and edema of the distal esophagus, and nonobstructing bilateral kidney stones. -advised patient to follow up with PCP regarding kidney stones -follows [facility] hep Assessment & Plan (04/09/2023 10:36 AM CDT): CT scan while in the ER May 2022 showing ileitis with involvement of the terminal ileum, likely infectious and/or inflammatory. CT enterography November 2022 showed multiple benign liver cysts, slightly nodular surface of the liver raising suspicion for fibrosis/cirrhosis, mild wall thickening and edema of the distal esophagus, and nonobstructing bilateral kidney stones. -advised patient to follow up with PCP regarding kidney stones Assessment & Plan (11/21/2022 10:21 AM CDT): CT scan while in the ER May 2022 showing ileitis with involvement of the terminal ileum, likely infectious and/or inflammatory. -recommend CT enterography for further evaluation Assessment & Plan (08/14/2022 11:30 AM GAMES MANAGER): CT scan while in the ER May 2022 showing ileitis with involvement of the terminal ileum, likely infectious and/or inflammatory. -colonoscopy as above Diarrhea 08/14/2022 Assessment & Plan (08/19/2023 10:23 AM GAMES MANAGER): Chronic, intermittent. Stool studies negative July 2022. CRP and ESR were normal July 2022. Colonoscopy September 2022 with mild erythema in the terminal ileum, pathology unremarkable, biopsies negative for microscopic colitis. Assessment & Plan (04/09/2023 10:23 AM CDT): Chronic, intermittent. Stool studies negative July 2022. CRP and ESR were normal July 2022. Colonoscopy September 2022 with mild erythema in the terminal ileum, pathology unremarkable, biopsies negative for microscopic colitis. Assessment & Plan (11/21/2022 10:20 AM CDT): Chronic, intermittent. Stool studies negative July 2022. CRP and ESR were normal July 2022. Colonoscopy September 2022 with mild erythema in the terminal ileum, pathology unremarkable, biopsies negative for microscopic colitis. Assessment & Plan (08/14/2022 11:30 AM GAMES MANAGER): Chronic, intermittent. -we will order labs and stool studies for further evaluation -schedule colonoscopy -The risks (risks of bleeding, infection, perforation requiring surgery, missed polyps/cancer, dental injury, aspiration pneumonia, anesthesia complications such as drug reaction and cardiopulmonary complications including rare chance of ), benefits, and alternatives of the planned procedure were explained to the patient who understands and consents to having procedure done. Thyroid nodule 10/16/2016 PCOS (polycystic ovarian syndrome) 10/16/2016 Erythrocytosis 09/12/2016 Resolved Problems Problem Noted Date Diagnosed Date Resolved Date Pituitary microadenoma (CMS/HCC) 11/02/2017 11/04/2021 Pulmonary nodule seen on imaging study 10/22/2017 11/04/2021 Immunizations Immunization Administration Dates Next Due Influenza, Quadrivalent, Jade l Culture-based MDCK, Preservative Free, Antibiotic Free, Intramuscular 06/13/2023 Influenza, Quadrivalent, Rec ombinant, Egg Free, Preservative Free, Intramuscular 05/31/2020 Influenza, Quadrivalent, Spl it, Preservative Free, Intramuscular 06/08/2022,06/06/2019 Influenza, Trivalent, IM (MDV) 8,04/23/2017,05/18/2016,04/22,05/11/2011 Influenza, Trivalent, Preser vative Free, Intramuscular 05/04/2017 Influenza, Unspecified 05/14/2024,2022(Deferred: Patient Refused),04/26/2022(Deferred: Patient ill today),05/31/2021,05/31/2020 Social History Tobacco Use Types Packs/Day Years Used Date Smoking Tobacco: Never Smokeless Tobacco: Never Alcohol Use Standard Drinks/Week Comments Not Currently 0 (1 standard drink = 0.6 oz pur e alcohol) AUDIT-C Answer Date Recorded Q1: How often do you have a drink containing alcohol? Never 11/27/2023 Q2: How many drinks containi ng alcohol do you have on a typical day when you are drinking? Patient does not drink Q3: How often do you have si x or more drinks on one occasion? Never 11/27/2023 PHQ-2 Answer Date Recorded PHQ-2 Total Score 0 06/20/2024 Personal Safety Answer Date Recorded Have you ever been in or are you currently in a harmful physical or emotional relationship or is someone making you feel afraid or unsafe? Denies 09/16/2024 Comments No Sex and Gender Information Value Date Recorded Sex Assigned at Not on file Legal Sex Female 2:54 AM GAMES MANAGER Gender Identity Not on file Sexual Orientation Not on file Last Filed Vital Signs Vital Sign Reading Time Taken Comments Blood Pressure 99/66 09/16/2024 3:00 PM GAMES MANAGER Pulse 62 09/16/2024 3:00 PM GAMES MANAGER Temperature 37 C (98.6 F) 09/16/2024 12:09 PM GAMES MANAGER Respiratory Rate 11 09/16/2024 3:00 PM GAMES MANAGER Oxygen Saturation 97% 09/16/2024 3:00 PM GAMES MANAGER Inhaled Oxygen Concentration - - Weight 63.5 kg (140 lb) 09/16/2024 12:09 PM GAMES MANAGER Height 162.6 cm (5' 4 ) 09/16/2024 12:09 PM GAMES MANAGER Body Mass Index 24.03 09/16/2024 12:09 PM GAMES MANAGER Plan of Treatment Not on file Medical Devices Implanted Type Area Game Protector Device Identifier Shelf Expiration Date Model / Serial / Lot Mobile Service Pros [employer]ark Mri Guided Rigid Deployment Device Cork Marker Breast [employer] Td 13-Mr - [id number] Implanted:Qty: 1 on 04/25/2024 at [facility] Right: Breast Cherrish [facility] [id number] 09/04/2024 [employer] TD 13-MR / / [id number] Procedures Procedure Name Priority Date/Time Associated Diagnosis Comments US GUIDED BIOPSY LIVER Schedule Routine, Read Routine (OP Routine) 09/16/2024 1:11 PM GAMES MANAGER Abnormal CT of liver SURGICAL PATHOLOGY Routine 09/16/2024 12 :47 PM GAMES MANAGER Abnormal CT of liver PROTIME-INR Routine 09/11/2024 12:07 PM GAMES MANAGER Abnormal CT of liver CBC WITH AUTO DIFFERENTIAL Routine 09/11/2024 12:06 PM GAMES MANAGER Abnormal CT of liver LIVER ELASTOGRAPHY W/O IMAGING W/I&R Routine 08/26/2024 8:43 AM GAMES MANAGER Abnormal finding on GI tract imaging SCREENING MAMMOGRAM BILATERAL W RALF Schedule Routine, Read Routine (OP Routine) 02/11/2024 10:02 AM CDT Screening mammogram, encounter for HM PAP SMEAR Routine 11/08/2023 COLONOSCOPY 10/25/2022 12:10 PM CDT from Last 3 Months or Most Recently Relevant to Health Maintenance Results * US Guided Biopsy Liver (09/16/2024 1:11 PM GAMES MANAGER) Anatomical Region Laterality Modality Leg N/A X-Ray Angiograph y 09/16/2024 1:31 PM GAMES MANAGER Impressions 09/16/2024 5:04 PM GAMES MANAGER 1. Successful ultrasound-guided core needle biopsy of random liver. 2. Please see separate Surgical Pathology results for final interpretation. Dictated by: Mario Styles M.D. The radiology attending physician has personally reviewed this study, and had reviewed and/or edited this written report and agrees with it. Electronically signed by: Corbin Arana M.D. Narrative 09/16/2024 5:04 PM GAMES MANAGER EXAMINATION: ULTRASOUND-GUIDED RANDOM LIVER CORE BIOPSY HISTORY: Elevated liver enzymes COMPARISON: CT abdomen pelvis performed on 08/23/2023 was reviewed prior to the procedure FINDINGS: The image liver has a normal sonographic appearance. TECHNIQUE: The procedure for ultrasound-guided core biopsy was explained to and discussed with the patient. Risks were explained to include, but not be limited to, hemorrhage, infection, injury to adjacent organs, non-diagnostic specimen and adverse reaction to medications administered. The patient voiced understanding and wished to proceed and signed the consent form. PROCEDURAL SEDATION: Procedural sedation was administered under the attending physician's direction and continuous monitoring by a trained nurse specialist who was independent from those actually performing the procedure. Total monitored sedation time was 15 minutes. CORE BIOPSY: An appropriate site was localized for core biopsy. The patient's overlying skin was prepped and draped in the usual sterile fashion. Local anesthesia was achieved via subcutaneous and deep administration with 4 mL of Lidocaine 1%. Under realtime ultrasound guidance, 2 passes were made with an 18 gauge BioPince core biopsy needle, 2.3 cm throw, with the use of a 17 gauge introducer needle. The core specimens were placed in formalin and submitted to the acquisition advisor service for delivery to Surgical Pathology. The biopsy tract was embolized with Gelfoam pledgets. The patient's skin was cleaned and dressed. The patient tolerated the entire procedure well without immediate complications. Dr. Corbin Arana M.D., the attending radiologist, was present from the beginning to the end of the procedure. Dr. Styles performed the biopsy. Procedure Note Corbin Arana MD - 09/16/2024 EXAMINATION: ULTRASOUND-GUIDED RANDOM LIVER CORE BIOPSY HISTORY: Elevated liver enzymes COMPARISON: CT abdomen pelvis performed on 08/23/2023 was reviewed prior to the procedure FINDINGS: The image liver has a normal sonographic appearance. TECHNIQUE: The procedure for ultrasound-guided core biopsy was explained to and discussed with the patient. Risks were explained to include, but not be limited to, hemorrhage, infection, injury to adjacent organs, non-diagnostic specimen and adverse reaction to medications administered. The patient voiced understanding and wished to proceed and signed the consent form. PROCEDURAL SEDATION: Procedural sedation was administered under the attending physician's direction and continuous monitoring by a trained nurse specialist who was independent from those actually performing the procedure. Total monitored sedation time was 15 minutes. CORE BIOPSY: An appropriate site was localized for core biopsy. The patient's overlying skin was prepped and draped in the usual sterile fashion. Local anesthesia was achieved via subcutaneous and deep administration with 4 mL of Lidocaine 1%. Under realtime ultrasound guidance, 2 passes were made with an 18 gauge BioPince core biopsy needle, 2.3 cm throw, with the use of a 17 gauge introducer needle. The core specimens were placed in formalin and submitted to the acquisition advisor service for delivery to Surgical Pathology. The biopsy tract was embolized with Gelfoam pledgets. The patient's skin was cleaned and dressed. The patient tolerated the entire procedure well without immediate complications. Dr. Corbin Arana M.D., the attending radiologist, was present from the beginning to the end of the procedure. Dr. Styles performed the biopsy. IMPRESSION: 1. Successful ultrasound-guided core needle biopsy of random liver. 2. Please see separate Surgical Pathology results for final interpretation. Dictated by: Mario Styles M.D. The radiology attending physician has personally reviewed this study, and had reviewed and/or edited this written report and agrees with it. Electronically signed by: Corbin Arana M.D. Jorge Crespo MD [facility] US PROCEDURES Saskia l Result * Surgical pathology (09/16/2024 12:47 PM GAMES MANAGER) Tissue (Liver, Biopsy, Needle Medical) 09/16/2024 12:47 PM GAMES MANAGER Comment:US RT liver core bio psy History of elevared liver enzymes Narrative PATHOLOGY [facility] - 09/17/2024 5:17 PM GAMES MANAGER EPIC results best viewed via link to PDF [facility] [place] [address] Note to Patients: This report may contain a detailed description of human tissue sent by a health care provider to the laboratory for pathologic evaluation. The content of this report is essential for diagnosis and may provide important critical findings. This information may be unfamiliar to patients to review without a medical professional present. It is advised that the patient review this report in the presence of a health care provider who can answer questions and explain the details. SURGICAL PATHOLOGY REPORT FINAL Patient Name: LISA REZA Gender: F : 1980 (Age: 44) Address: [address] [place], [place] [id number] Hospital #: [id number] Taken:09/16/2024 Received:09/16/2024 Reported: 09/17/2024 Patient Type: [facility] Ancillary Service: UNKNOWN Location: [facility] Physician(s): Francine Contreras MD Jeffrey S. Crippin, M.D. Diagnosis: Liver, [place], right, ultrasound-guided biopsy: - Focal mild portal inflammation. - Minimal macrovesicular steatosis involving < 5% of hepatic parenchyma. - No increase in fibrosis (trichrome and reticulin stains). - Iron stain is negative. - PAS-D stain is negative for intracytoplasmic globules in periportal hepatocytes. [facility]/09/17/2024 15:07 By this signature, I attest that the above diagnosis is based upon my personal examination of the slides(and/or other material indicated in the diagnosis). Chastity Mccurdy MD, PHD Report Electronically Reviewed and Signed Out By Chastity Mccurdy MD, PHD 09/17/2024 17:17:50 Miguel Warren D.O. History: The patient is a 44-year-old woman presenting for abnormal CT of liver. Operative procedure: Right liver core biopsy. Specimen(s) Received: A: Right liver core biopsy Gross Description: Received in formalin, labeled with the patient s identifiers and right liver core biopsy and consists of to brown core(s) of soft tissue measuring 1.9-2.1 cm in length x 0.1 cm in diameter. Labeled A1 to A2. Jar 0. els09/16/2024 18:50 PA(s): Leelee Paulino By this signature, I attest that the above diagnosis is based upon my personal examination of the slides(and/or other material). Addenda/Procedures The performance characteristics of some immunohistochemical stains, fluorescence in-situ hybridization tests and immunophenotyping by flow cytometry cited in this report (if any) were determined by the Surgical Pathology and Flow Cytometry Departments at [facility] as part of an ongoing quality control operator program and in compliance with federally mandated regulations drawn from the Clinical Laboratory Improvement Act of 1988 (CLIA '88). Some of these tests rely on the use of analyte specific reagents and are subject to specific labeling requirements by the US Food and Drug Administration. Such diagnostic tests may only be performed in a facility that is certified by the Department of Health and Human Services as a high complexity laboratory under CLIA '88. The FDA has determined that such clearance or approval is not necessary. This test is used for clinical purposes. It should not be regarded as investigational or for research. Nevertheless, federal rules concerning the medical use of analyte specific reagents require that the following disclaimer be attached to the report: This test was developed and its performance characteristics determined by the Surgical Pathology and Flow Cytometry Departments of [facility]. It has not been cleared or approved by the U. S. Food and Drug Administration. IMAGES AND SCANNED DOCUMENTS, IF INCLUDED, ONLY VIEWABLE IN PDF VERSION OF REPORT Jorge Crespo MD LAB PATHOLOGY ORDERABL ES Final Result PATHOLOGY [facility] 3rd Floor [place], [place] [phone] * Protime-INR (09/11/2024 12:07 PM GAMES MANAGER) INR 1.0 0.9 - 1.2 [facility] - 01 Comment: Reference interval is for non-anticoagulated patients. Suggested INR therapeutic range for Vitamin K antagonist therapy: Standard Dose (moderate intensity therapeutic range): 2.0 - 3.0 Higher intensity therapeutic range 2.5 - 3.5 PT 11.0 9.1 - 12.0 sec [facility] - 01 Blood 09/11/2024 12:0 7 PM GAMES MANAGER 09/11/2024 Narrative [facility] - 09/12/2024 6:09 AM GAMES MANAGER Performed at: [address] [id number] [employer] Attendant: Warren Gaona PhD, Phone: [phone] Jorge Crespo MD LAB BLOOD ORDERABLES F inal Result LABCO [facility] - 01 * CBC with auto differential (09/11/2024 12:06 PM GAMES MANAGER) Pathologist [facility] WBC 7.4 3.4 - 10.8 x10E3/uL [facility] - 01 RBC 5.26 3.77 - 5.28 x10E6/uL [facility] - 01 Hgb 15.5 11.1 - 15.9 g/dL [facility] - 01 Hct 46.2 34.0 - 46.6 % [facility] - 01 MCV 88 79 - 97 fL [facility] - 01 MCH 29.5 26.6 - 33.0 pg [facility] - 01 MCHC 33.5 31.5 - 35.7 g/dL [facility] - 01 Rdw 13.1 11.7 - 15.4 % [facility] - 01 Platelets 308 150 - 450 x10E3/uL [facility] - 01 Neutrophils pct 63 Not Estab. % [facility] - 01 Lymphs pct 26 Not Estab. % [facility] - 01 Monocytes pct 9 Not Estab. % [facility] - 01 Eosinophils pct 1 Not Estab. % [facility] - 01 Basophil pct 1 Not Estab. % [facility] - 01 Neutrophil abs 4.7 1.4 - 7.0 x10E3/uL [facility] - 01 Lymphs (Absolute) 1.9 0.7 - 3.1 x10E3/uL [facility] - 01 Monocyte abs 0.7 0.1 - 0.9 x10E3/uL [facility] - 01 Eosinophils, abs 0.0 0.0 - 0.4 x10E3/uL [facility] - 01 Basophils, abs 0.1 0.0 - 0.2 x10E3/uL [facility] - 01 Immature Granulocytes 0 Not Estab. % [facility] - 01 Immature Grans (Abs) 0.0 0.0 - 0.1 x10E3/uL [facility] - 01 Blood 09/11/2024 12:0 6 PM GAMES MANAGER 09/11/2024 Narrative [facility] - 09/12/2024 5:07 AM GAMES MANAGER Performed at: - [address] [id number] [employer] Flight Attendant: Warren Gaona PhD, Phone: [phone] Jorge Crespo MD LAB BLOOD ORDERABLES F inal Result [facility] - 01 * Liver Elastography w/o Imaging W/I&R -[facility] (All Locations) (08/26/2024 8:43 [facility] Anatomical Region Laterality Modality Other Jorge Crespo MD GI PROCEDURE ORDERABLE S Final Result * Screening Mammogram Bilateral W Ralf (02/11/2024 10:02 AM CDT) Anatomical Region Laterality Modality Breast Bilateral Mammography Narrative 02/12/2024 2:22 PM CDT Mammogram Technique: Bilateral Digital Breast Tomosynthesis, Bilateral C-view 2D Screening mammogram. Views obtained: bilateral craniocaudal and bilateral mediolateral oblique. Computer Aided Detection was performed. Mammogram Findings: The present examination has been compared to prior imaging studies performed at [place], [place] on 12/21/2020, 01/02/2022 and 02/08/2023. The breasts are heterogeneously dense, which may obscure small masses. There is no suspicious abnormality in either breast. Impression: There is no mammographic evidence of malignancy. Annual screening mammography is recommended. If supplemental screening is desired, breast MRI would be recommended in this patient with heterogeneously dense breasts. OVERALL FINAL ASSESSMENT: BI-RADS CATEGORY 1: Negative. Procedure Note Brenda Trujillo MD - 02/12/2024 Mammogram Technique: Bilateral Digital Breast Tomosynthesis, Bilateral C-view 2D Screening mammogram. Views obtained: bilateral craniocaudal and bilateral mediolateral oblique. Computer Aided Detection was performed. Mammogram Findings: The present examination has been compared to prior imaging studies performed at [place], [place] on 12/21/2020, 01/02/2022 and 02/08/2023. The breasts are heterogeneously dense, which may obscure small masses. There is no suspicious abnormality in either breast. Impression: There is no mammographic evidence of malignancy. Annual screening mammography is recommended. If supplemental screeningis desired, breast MRI would be recommended in this patient with heterogeneously dense breasts. OVERALL FINAL ASSESSMENT: BI-RADS CATEGORY 1: Negative. us Self Screening Mammogram IMG MAMMO PROCEDURES Fi nal Result * HM PAP SMEAR (11/08/2023) Historical Provider [facility] Final Result * COLONOSCOPY (10/25/2022 12:10 PM CDT) Anatomical Region Laterality Modality Other Narrative Procedure Note Dung Davies MD - 10/25/2022 12:10 PM CDT [facility] GI ENDOSCOPY Patient Name: Lisa Reza Procedure Date: 10/25/2022 12:10 PM Date of : 1980 Admit Type: Outpatient Age: 42 Gender: Female Attending MD: Dung Davies M.D. Room: [facility] ENDOSCOPY ROOM 06 Note Status: Finalized Procedure: Colonoscopy Indications: Abnormal CT of the GI tract, Abdominal pain,Chronic diarrhea Referring MD: Ryan Ceballos M.D. Providers: Dung Davies M.D. Medicines: Monitored Anesthesia Care Complications: No immediate complications. Estimated Blood Loss: Estimated blood loss: none. Procedure: The benefits, risks and alternatives of theprocedure and sedation were discussed and informed consentwas obtained. All questions were answered. Please referto the signed informed consent document in the medical record. The scope was passed under direct vision.The PCF-HE217S colonoscope was introduced through theanus and advanced to the terminal ileum. The colonoscopy was performed without difficulty. The patient tolerated the procedure well. The quality of thebowel preparation was good. Scope withdrawal time was 12 minutes. Prep was administered in a split dose. Findings: The perianal and digital rectal examinations were normal. A scattered area of mucosa in the terminal ileum was mildly erythematous. This was biopsied with a cold forceps for histology. A diminutive polyp was found in the sigmoid colon. The polyp wasremoved with a cold biopsy forceps. Resection and retrieval were complete. A diminutive polyp was found in the rectum. The polyp was removedwith a cold biopsy forceps. Resection and retrieval were complete. The left colon was mildly tortuous. Non-bleeding internal hemorrhoids were found during retroflexion. The hemorrhoids were small. Biopsies for histology were taken with a cold forceps from the right colon and left colon for evaluation of microscopic colitis. The exam was otherwise without abnormality. Impression: - Erythematous mucosa in the terminal ileum.Biopsied. - One diminutive polyp in the sigmoid colon,removed with a cold biopsy forceps. Resected andretrieved. - One diminutive polyp in the rectum, removed witha cold biopsy forceps. Resected and retrieved. - Tortuous colon. - Non-bleeding internal hemorrhoids. - The examination was otherwise normal. - Biopsies were taken with a cold forceps from the right colon and left colon for evaluation of microscopic colitis. Recommendation: - Patient has a contact number available for emergencies. The signs and symptoms of potential delayed complications were discussed with thepatient. Return to normal activities tomorrow. Written discharge instructions were provided to thepatient. - High fiber diet. - Continue present medications. - Await pathology results. - Repeat colonoscopy in 5 years for surveillance. - Return to GI office as previously scheduled. Dung Davies M.D. Dung Davies M.D. 10/25/2022 12:46:43 PM . Number of Addenda: 0 Note Initiated On: 10/25/2022 12:10 PM Recognized by the [employer] for promoting quality in endoscopy Dung Davies MD ENDOSCOPY PROCEDURES Final Resul t from Last 3 Months or Most Recently Relevant to Health Maintenance Insurance [facility] Advance Directives For more information, please contact: [phone] * Full Code (Latest Code Status on File) Date Activated Date Inactivated Comments 09/16/2024 12:07 PM 09/17/2024 4:53 AM Care Teams Grain Manager Relationship Specialty Start Date End Date Ryan Ceballos MD [address] [place] [address] PCP - General 02/22/21 Elisabet Stoddard MD [address] [address] Referring Physician Gynecology 04/01/24
--- OUTSIDE RECORDS SUMMARY | 2024-09-22 08:05 | XMS_ITS | Encounter Summary ---
Author Organization [facility] Healthcare Address [address] [place] [id number] Care Team Providers Care Hand Suture Winder Name Role Phone Ryan Ceballos MD Primary Care Provid er BETHANY Morejon Jr., Robert James Primary Care Provide r Ryan Ceballos MD Primary Care Provid er Elisabet Stoddard MD Unavailable Encounter Details Date Type Department Care Team (Late st Contact Info) Description 09/15/2016 Orders Only [facility] Health Information Management [address] [place] [address] Scanning, Provider Social History Tobacco Use Types Packs/Day Years Used Date Smoking Tobacco: Never Assessed Comments Unknown Sex and Gender Information Value Date Recorded Sex Assigned at Not on file Legal 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 06/28/2022 06/28/2022 07/08/2022 3:06 AM SLIME PLANT OPERATOR HELPER documented as of this encounter Care Teams Hand Suture Winder Relationship Specialty Start Date End Date Ryan Ceballos MD [address] [place] [address] PCP - General 09/15/16 09/25/19 Denny Morejon Jr., PA [address] [place] [address] PCP - General 09/26/19 02/21/21 Ryan Ceballos MD [address] [place] [address] PCP - General 02/22/21 Elisabet Stoddard MD [address] [id number] Referring Physician Gynecology 04/01/24 documented as of this encounter
--- OUTSIDE RECORDS SUMMARY | 2024-09-22 08:05 | XMS_ITS | Clinical Summary ---
Author Organization [facility] Address [address] [place] [address] Care Team Providers Care Wind Turbine Installer Name Role Phone Ryan Ceballos MD Primary Care Provid er Elisabet Stoddard MD Unavailable [phone] Allergies Active Allergy Reactions Criticality Noted Date [...] py completed ) L gasseri/B bifidum/B longum ([place] ORAL) Take by mouth daily 025 Discontin [...] (CMS/HCC) Assessment & Plan (08/29/2024 9:00 AM AUTOMATIC STEEL TIE ADJUSTER): Noted on CT scan November 2022. Patient [...] with hepatology Irritable bowel syndrome with diarrhea 4 Assessment & Plan (08/29/2024 9:09 AM AUTOMATIC STEEL TIE ADJUSTER): Abdominal pain off and on for 3-4 [...] diet Assessment & Plan (08/19/2023 10:24 AM AUTOMATIC STEEL TIE ADJUSTER): -xifaxan tid 14 days Allergic rhinitis 08/22/2022 [...] Bentyl Assessment & Plan (08/14/2022 11:29 AM AUTOMATIC STEEL TIE ADJUSTER): Abdominal pain off and on for 3-4 [...] 08/14/2022 Assessment & Plan (08/29/2024 9:00 AM AUTOMATIC STEEL TIE ADJUSTER): Chronic GERD, takes PPI daily and Pepcid [...] loss Assessment & Plan (08/19/2023 10:21 AM AUTOMATIC STEEL TIE ADJUSTER): Chronic GERD, takes Pepcid 40 mg p.o. [...] loss Assessment & Plan (08/14/2022 11:30 AM AUTOMATIC STEEL TIE ADJUSTER): Chronic GERD, takes Pepcid 40 mg p.o. [...] 08/14/2022 Assessment & Plan (08/19/2023 10:21 AM AUTOMATIC STEEL TIE ADJUSTER): CT scan while in the ER May [...] up with PCP regarding kidney stones -[facility] Assessment & Plan (04/09/2023 10:36 AM CDT): [...] evaluation Assessment & Plan (08/14/2022 11:30 AM AUTOMATIC STEEL TIE ADJUSTER): CT scan while in the ER May 2022 showing ileitis with involvement of the terminal ileum, likely infectious and/or inflammatory. -colonoscopy as above Diarrhea 08/14/2022 Assessment & Plan (08/19/2023 10:23 AM AUTOMATIC STEEL TIE ADJUSTER): Chronic, intermittent. Stool studies negative July 2022. [...] colitis. Assessment & Plan (08/14/2022 11:30 AM AUTOMATIC STEEL TIE ADJUSTER): Chronic, intermittent. -we will order labs and [...] nodule seen on imaging study 10/22/2017 11/04/2021 Encounters Date Type Department Care Team Description 09/17/2024 Results Follow-Up [facility] Gasteroenterology [address] [place] [address] [place] [address] Jorge Crespo MD 09/16/2024 11:14 AM AUTOMATIC STEEL TIE ADJUSTER - 09/16/2024 11:59 PM AUTOMATIC STEEL TIE ADJUSTER Hospital Encounter [facility] Radiology 1 [facility] [place] [address] of liver Discharge Disposition: Discharge to home or self care 09/05/2024 Orders Only [facility] Gastroenterology [address] [place] [address] [place] [address] [place] [address] Luisa Hernandez, RN Abnormal CT of liver (Primary Dx) 09/05/2024 Telephone Radiology 1 [place] [address] Cee aDniel RT 09/05/2024 Orders Only [facility] Gastroenterology [address] [place] [address] [place] [address] [place] [address] Luisa Hernandez, RN Abnormal CT of liver (Primary Dx); Cirrhosis of liver without ascites, unspecified hepatic cirrhosis type (HCC); 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 08/29/2024 8:30 AM AUTOMATIC STEEL TIE ADJUSTER Office Visit [facility] Gastroenterology at [address] [address] Dung Davies MD Irritable bowel syndrome with diarrhea (Primary Dx); Cirrhosis of liver without ascites, unspecified hepatic cirrhosis type (HCC); Gastroesophageal reflux disease without esophagitis 08/25/2024 11:30 AM AUTOMATIC STEEL TIE ADJUSTER Procedure visit [facility] Gastroenterology [address] [place] [address] [place] [address] [place] [address] Abnormal finding on GI tract imaging 08/25/2024 11:20 AM AUTOMATIC STEEL TIE ADJUSTER Office Visit [facility] Gastroenterology [address] [place] [address] [place] [address] [place] [address] Jorge Crespo MD Abnormal finding on GI tract imaging (Primary Dx); Abnormal CT of liver 08/06/2024 12:15 PM AUTOMATIC STEEL TIE ADJUSTER Office Visit [facility] Family Medicine [address] [phone] Ryan Ceballos MD Dysfunction of right eustachian tube (Primary Dx) from Last 3 Months Immunizations Immunization Administration Dates Next Due Influenza, Quadrivalent, Jade l Culture-based MDCK, Preservative Free, Antibiotic Free, Intramuscular 06/13/2023 Influenza, Quadrivalent, Rec ombinant, Egg Free, Preservative Free, Intramuscular 05/31/2020 Influenza, Quadrivalent, Spl it, Preservative Free, Intramuscular 06/08/2022,06/06/2019 Influenza, Trivalent, IM (MDV) 8,04/23/2017,05/18/2016,04/22,05/11/2011 Influenza, Trivalent, Preser vative Free, Intramuscular 05/04/2017 Influenza, Unspecified 05/14/2024,2022(Deferred: Patient Refused),04/26/2022(Deferred: Patient ill today),05/31/2021,05/31/2020 Surgical History Surgery Date Site/Laterality Comments IR FINE NEEDLE ASPIRATION W IMAGE GUIDANCE 08/28/2016 N/A SECTION 2003, 2005, 2009 HYSTEROSCOPY 2016 WISDOM TOOTH EXTRACTION (3) COLONOSCOPY UPPER GASTROINTESTINAL ENDOSCOPY BREAST BIOPSY 04/25/2024 Right BIOPSY 07/30/2016 - 07/29/2017 Thyroid US GUIDED BIOPSY LIVER 09/16/2024 N/A Medical History Medical History Date Comments Pulmonary nodule seen on imaging study 8 Pituitary microadenoma (HCC) 11/02/2017 GERD (gastroesophageal reflux disease) Years Migraines Approx 1998 PCOS (polycystic ovarian syndrome) Seasonal allergies Tachycardia Thyroid nodule 2016 Skin cancer (melanoma) (HCC) 2016 ABD , Back- skin cancer spot removal PONV (postoperative nausea a nd vomiting) Motion sickness Colon polyp Irritable bowel syndrome Family History Medical History Relation Name Comments Breast cancer Cousin Asthma Daughter Jacquelyn Reza Alzheimer's disease Father Flo Johnson Anemia Father Flo Johnson Atrial fibrillation Father Flo Johnson Cancer Father Flo Johnson Hypertension Father Flo Johnson Prostate cancer Father Flo Johnson Breast cancer Father's Sister Monet Collazo Cancer Father's Sister Monet Collazo Heart attack Maternal Grandfather Blayne Bowles Heart disease Maternal Grandfather Blayne Bowles Stroke Maternal Grandfather Blayne Bowles Breast cancer Maternal Grandmother Laura Bowles Cancer Maternal Grandmother Laura Bowles Kidney disease Maternal Grandmother Laura Bowles Arthritis Mother Tessa Johnson Diabetes Mother Tessa Johnson Hyperlipidemia Mother Tessa Johnson Hypertension Mother Tessa Johnson Breast cancer Mother's Sister 1 Thyroid cancer Mother's Sister 1 Cancer Mother's Sister 2 Amy Mcgrath Alzheimer's disease Paternal Grandfather Oral Johnson Heart disease Paternal Grandfather Oral Johnson Prostate cancer Paternal Grandfather Oral Johnson Cancer Paternal Grandmother [place] Johnson Diabetes Paternal Grandmother [place] Johnson Heart disease Paternal Grandmother [place] Johnson Uterine cancer Paternal Grandmother [place] Johnson Mental illness Sister Dulce Relation Name Status Comments Cousin Daughter Jacquelyn Reza Father Flo Johnson Alive Alzheimers Father's Sister Monet Collazo Maternal Grandfather Blayne Bowles Maternal Grandmother Laura Bowles Mother Tessa Johnson Alive Mother's Sister 1 Mother's Sister 2 Amy Wargel Paternal Grandfather Oral Johnson Paternal Grandmother [place] Johnson Sister Dulce Social History Tobacco Use Types Packs/Day Years [...] on file Legal Sex Female 2:54 AM AUTOMATIC STEEL TIE ADJUSTER Gender Identity Not on file Sexual Orientation Not on file Obstetrics History Para Term AB IAB SAB Ectopic Multiple Livin g Live Births 3 3 3 Date Outcome GA Total Labor Labor/2nd/3rd Weight Sex Type Anes PTL Malathi A1 A5 Name Clin Term Term Term Last Filed Vital Signs Vital Sign Reading Time Taken Comments Blood Pressure 99/66 09/16/2024 3:00 PM AUTOMATIC STEEL TIE ADJUSTER Pulse 62 09/16/2024 3:00 PM AUTOMATIC STEEL TIE ADJUSTER Temperature 37 C (98.6 F) 09/16/2024 12:09 PM AUTOMATIC STEEL TIE ADJUSTER Respiratory Rate 11 09/16/2024 3:00 PM AUTOMATIC STEEL TIE ADJUSTER Oxygen Saturation 97% 09/16/2024 3:00 PM AUTOMATIC STEEL TIE ADJUSTER Inhaled Oxygen Concentration - - Weight 63.5 kg (140 lb) 09/16/2024 12:09 PM AUTOMATIC STEEL TIE ADJUSTER Height 162.6 cm (5' 4 ) 09/16/2024 12:09 PM AUTOMATIC STEEL TIE ADJUSTER Body Mass Index 24.03 09/16/2024 12:09 PM AUTOMATIC STEEL TIE ADJUSTER Plan of Treatment Health Maintenance Due Date Last Done Comments Hepatitis C Screening 1980 DTaP/Tdap/Td Vaccine (1 - Tdap) 1990 Hepatitis B Screening 1997 Pneumococcal vaccine <65 (1 of 2 - PCV) 1998 Regular Well Visit/Exam 18-64 08/22/2023 08/22/2022, 08/22/2022 Covid-19 Vaccine ( season) 2024 07/13/2021, 11/05/2020, 10/15/2020 Breast Cancer Screening-Mammogram 02/10/2025 02/11/2024, 02/08/2023, 01/02/2022, Additional history exists Depression Screening 06/20/2025 06/20/2024, 08/22/2022, 04/26/2022, Additional history exists Colon Cancer Screening-Colonoscopy 10/26/2027 10/25/2022 Cervical Cancer Screening 11/07/20282023, 10/20/2021, 10/20/2021 Influenza Vaccine Completed 05/14/2024, , 06/08/2022, Additional history exists HPV Vaccines Aged Out No longer eligi ble based on patient's age to complete this topic Medical Devices Implanted Type Area Lead Caregiver Device Identifier Shelf Expiration Date Model / Serial / Lot [employer] [facility] Trimark Mri Guided Rigid Deployment Device Cork Marker Breast Trimark Td 13-Mr - [id number] Implanted:Qty: 1 on 04/25/2024 at [facility] Right: [employer] [id number] 09/04/2024 TRIMARK TD 13-MR / / [id number] Procedures Procedure Name Priority Date/Time Associated Diagnosis Comments US GUIDED BIOPSY LIVER Schedule Routine, Read Routine (OP Routine) 09/16/2024 1:11 PM AUTOMATIC STEEL TIE ADJUSTER Abnormal CT of liver SURGICAL PATHOLOGY Routine 09/16/2024 12 :47 PM AUTOMATIC STEEL TIE ADJUSTER Abnormal CT of liver PROTIME-INR Routine 09/11/2024 12:07 PM AUTOMATIC STEEL TIE ADJUSTER Abnormal CT of liver CBC WITH AUTO DIFFERENTIAL Routine 09/11/2024 12:06 PM AUTOMATIC STEEL TIE ADJUSTER Abnormal CT of liver LIVER ELASTOGRAPHY W/O IMAGING W/I&R Routine 08/26/2024 8:43 AM AUTOMATIC STEEL TIE ADJUSTER Abnormal finding on GI tract imaging SCREENING MAMMOGRAM BILATERAL W RALF Schedule Routine, Read Routine (OP Routine) 02/11/2024 10:02 AM CDT Screening mammogram, encounter for HM PAP SMEAR Routine 11/08/2023 COLONOSCOPY 10/25/2022 12:10 PM CDT from Last 3 Months or Most Recently Relevant to Health Maintenance Results * US Guided Biopsy Liver (09/16/2024 1:11 PM AUTOMATIC STEEL TIE ADJUSTER) Anatomical Region Laterality Modality Leg N/A X-Ray Angiograph y 09/16/2024 1:31 PM AUTOMATIC STEEL TIE ADJUSTER Impressions 09/16/2024 5:04 PM AUTOMATIC STEEL TIE ADJUSTER 1. Successful ultrasound-guided core needle biopsy of random liver. 2. Please see separate Surgical Pathology results for final interpretation. Dictated by: Mario Styles M.D. The radiology attending physician has personally reviewed this study, and had reviewed and/or edited this written report and agrees with it. Electronically signed by: Corbin Arana M.D. Narrative 09/16/2024 5:04 PM AUTOMATIC STEEL TIE ADJUSTER EXAMINATION: ULTRASOUND-GUIDED RANDOM LIVER CORE BIOPSY HISTORY: [...] placed in formalin and submitted to the cleaner and polisher service for delivery to Surgical Pathology. The [...] placed in formalin and submitted to the cleaner and polisher service for delivery to Surgical Pathology. The [...] by: Corbin Arana M.D. Jorge Crespo MD IM US PROCEDURES Saskia l Result * Surgical pathology (09/16/2024 12:47 PM AUTOMATIC STEEL TIE ADJUSTER) Tissue (Liver, Biopsy, Needle Medical) 09/16/2024 12:47 PM AUTOMATIC STEEL TIE ADJUSTER Comment:US RT liver core bio psy History of elevared liver enzymes Narrative PATHOLOGY [facility] - 09/17/2024 5:17 PM AUTOMATIC STEEL TIE ADJUSTER EPIC results best viewed via link to PDF [facility] Surgical Pathology [place] [address] Note to Patients: This report may contain [...] Gender: F : 1980 (Age: 44) Address: [address] [place], [place] [address] Hospital #: [id number] Taken:09/16/2024 Received:09/16/2024 Reported: 09/17/2024 Patient Type: [facility] Ancillary Service: UNKNOWN Location: [facility] IR Physician(s): Francine Contreras MD Jeffrey S. Crippin, M.D. Diagnosis: Liver, cheesh-na, right, ultrasound-guided biopsy: - Focal mild portal inflammation. - Minimal macrovesicular steatosis involving < 5% of hepatic parenchyma. - No increase in fibrosis (trichrome and reticulin stains). - Iron stain is negative. - PAS-D stain is negative for intracytoplasmic globules in periportal hepatocytes. [facility]/09/17/2024 15:07 By this signature, I attest that [...] diameter. Labeled A1 to A2. Jar 0. [facility]/09/16/2024 18:50 PA(s): Leelee Paulino By this signature, I attest that the above diagnosis is based upon my personal examination of the slides(and/or other material). Addenda/Procedures The performance characteristics of some immunohistochemical stains, fluorescence in-situ hybridization tests and immunophenotyping by flow cytometry cited in this report (if any) were determined by the Surgical Pathology and Flow Cytometry Departments at [facility] as part of an ongoing chief quality officer program and in compliance with federally mandated [...] Surgical Pathology and Flow Cytometry Departments of [facility]. It has not been cleared or approved by the U. S. Food and Drug Administration. IMAGES AND SCANNED DOCUMENTS, IF INCLUDED, ONLY VIEWABLE IN PDF VERSION OF REPORT Jorge Crespo MD LAB PATHOLOGY ORDERABL ES Final Result PATHOLOGY [facility] 3rd Floor [place], [place] [phone] * Protime-INR (09/11/2024 12:07 PM AUTOMATIC STEEL TIE ADJUSTER) INR 1.0 0.9 - 1.2 [facility] - 01 Comment: Reference interval is for non-anticoagulated patients. Suggested INR therapeutic range for Vitamin K antagonist therapy: Standard Dose (moderate intensity therapeutic range): 2.0 - 3.0 Higher intensity therapeutic range 2.5 - 3.5 PT 11.0 9.1 - 12.0 sec [facility] - 01 Blood 09/11/2024 12:0 7 PM AUTOMATIC STEEL TIE ADJUSTER 09/11/2024 Narrative [facility] - 09/12/2024 6:09 AM AUTOMATIC STEEL TIE ADJUSTER Performed at: 01 - [facility] [address] [id number] Agricultural Adviser: Warren Gaona PhD, Phone: [phone] Jorge Crespo MD LAB BLOOD ORDERABLES F inal Result [facility] - 01 * CBC with auto differential (09/11/2024 12:06 PM AUTOMATIC STEEL TIE ADJUSTER) [facility] WBC 7.4 3.4 - 10.8 x10E3/uL [facility] [...] - 01 Blood 09/11/2024 12:0 6 PM AUTOMATIC STEEL TIE ADJUSTER 09/11/2024 Narrative [facility] - 09/12/2024 5:07 AM AUTOMATIC STEEL TIE ADJUSTER Performed at: [address] [place] [id number] Agricultural Adviser: Warren Gaona PhD, Phone: [phone] Jorge Crespo MD LAB BLOOD ORDERABLES F inal Result [facility] - 01 * Liver Elastography w/o Imaging W/I&R -[facility] (All Locations) (08/26/2024 8:43 AMCST) Anatomical Region Laterality Modality Other Jorge Crespo [...] compared to prior imaging studies performed at [place], [place] on 12/21/2020, 01/02/2022 and 02/08/2023. The [...] compared to prior imaging studies performed at [place], [place] on 12/21/2020, 01/02/2022 and 02/08/2023. The [...] * HM PAP SMEAR (11/08/2023) Historical Provider HEALTH MAINTENANCE Final Result * COLONOSCOPY (10/25/2022 12:10 PM CDT) Anatomical Region Laterality Modality Other Narrative Procedure Note Dung Davies MD - 10/25/2022 12:10 PM CDT [facility] GI ENDOSCOPY Patient Name: Lisa Reza Procedure Date: 10/25/2022 12:10 PM Date of : 1980 Admit Type: Outpatient Age: 42 Gender: Female Attending MD: Dung Davies M.D. Room: [facility] ENDOSCOPY ROOM 06 Note Status: Finalized Procedure: [...] The scope was passed under direct vision.The [id number] colonoscope was introduced through theanus and advanced [...] On: 10/25/2022 12:10 PM Recognized by the [employer] for promoting quality in endoscopy Dung Davies MD ENDOSCOPY PROCEDURES Final Resul t from Last 3 Months or Most Recently Relevant to Health Maintenance Insurance [facility] H[facility]PPO Address: [facility] [address] [place] [address] [facility] HMO/PPO Address: [address] [place] [address] [facility] CHO[facility] H[facility]/PPO Address: [place] [address] Advance Directives For more information, please contact: [phone] * Full Code (Latest Code Status on File) Date Activated Date Inactivated Comments 09/16/2024 12:07 PM 09/17/2024 4:53 AM Care Teams Wind Turbine Installer Relationship Specialty Start Date End Date Ryan Ceballos MD [address] [place], [place] [id number] PCP - General 02/22/21 Elisabet Stoddard MD [address] [address] Referring Physician Gynecology 04/01/24
--- OUTSIDE RECORDS SUMMARY | 2024-09-22 08:05 | XMS_ITS | Encounter Summary ---
Author Organization [facility] Address [address] [place] [address] Phone Care Team Providers Care Dealer Card Room Name Role Phone Ryan Ceballos MD Primary Care Provid er Elisabet Stoddard MD Unavailable [phone] Encounter Details Date Type Department Care Team (Late st Contact Info) Description 09/17/2024 Results Follow-Up [facility] Gasteroenterology [address] [facility] Advanced Medicine 12th [place] [address] [place] [address] Jorge Crespo MD [address] [facility] [address] [place] [address] Social History Tobacco Use Types Packs/Day Years [...] on file Legal Sex Female 2:54 AM SEVERITY OF ILLNESS COORDINATOR Gender Identity Not on file Sexual Orientation Not on file documented as of this encounter Plan of Treatment Not on file documented as of this encounter Visit Diagnoses Not on filedocumented in this encounter Care Teams Dealer Card Room Relationship Specialty Start Date End Date Ryan Ceballos MD [address] [place] [address] PCP - General 02/22/21 Elisabet Stoddard MD [address] [address] Referring Physician Gynecology 04/01/24 documented as of this encounter
--- OUTSIDE RECORDS SUMMARY | 2024-09-22 08:05 | XMS_ITS | Encounter Summary ---
Author Organization [facility] Facility Care Team Providers Care Furnace Fitter Name Role Phone Ryan Ceballos MD Primary Care Provid er BETHANY Morejon Jr., Robert James Primary Care Provide r Ryan Ceballos MD Primary Care Provid er Elisabet Stoddard MD Unavailable [phone] Encounter Details Date Type Department Care Team (Latest Contact Info) Description 05/24/2016 Orders Only [facility] Provider, MD Diamond [address] [place] [address] Social History Tobacco Use Types Packs/Day Years Used Date Smoking Tobacco: Never Assessed Comments Unknown Sex and Gender Information Value Date Recorded Sex Assigned at Not on file Legal Sex Female 2:54 AM COLLECTION OFFICER Gender Identity Not on file Sexual Orientation Not on file documented as of this encounter Plan of Treatment Not on file documented as of this encounter Procedures Procedure Name Priority Date/Time Associated Diagnosis Comments SCAN - PATHOLOGY 05/24/2016 12:0 0 AM CDT documented in this encounter Results * SCAN - PATHOLOGY (05/24/2016 12:00 AM CDT) Narrative 05/24/2016 12:00 AM CDT Ordered by an unspecified provider. us Historical Provider Final Res ult documented in this encounter Visit Diagnoses Not on filedocumented in this encounter Additional Health Concerns Infection Onset Date Last Indicated Resolved Time COVID19 Comment:Added from the Screening question BPA, identifying patients that tested positive for COVID in the last 14 days and the result is from a facility outside [facility] . 06/28/2022 06/28/2022 07/08/2022 3:06 AM COLLECTION OFFICER documented as of this encounter Care Teams Furnace Fitter Relationship Specialty Start Date End Date Ryan Ceballos MD [address] [place] [address] PCP - General 09/15/16 09/25/19 Denny Morejon Jr., PA [address] [place] [address] PCP - General 09/26/19 02/21/21 Ryan Ceballos MD [address] [place] [address] PCP - General 02/22/21 Elisabet Stoddard MD [address] [address] Referring Physician Gynecology 04/01/24 documented as of this encounter
--- OUTSIDE RECORDS SUMMARY | 2024-09-22 08:05 | XMS_ITS | Encounter Summary ---
Author Organization [facility] Facility Care Team Providers Care Student Services Director Name Role Phone Ryan Ceballos MD Primary Care Provid er BETHANY Morejon Jr., Robert James Primary Care Provide r Ryan Ceballos MD Primary Care Provid er Elisabet Stoddard MD Unavailable [phone] Encounter Details Date Type Department Care Team (Latest Contact Info) Description 09/06/2018 Orders Only [facility] Provider, MD Diamond [address] [place] [address] Social History Tobacco Use Types Packs/Day Years Used Date Smoking Tobacco: Never Assessed Comments Unknown Sex and Gender Information Value Date Recorded Sex Assigned at Not on file Legal Sex Female 2:54 AM FILM OR TAPE LIBRARIAN Gender Identity Not on file Sexual Orientation Not on file documented as of this encounter Plan of Treatment Not on file documented as of this encounter Procedures Procedure Name Priority Date/Time Associated Diagnosis Comments SCAN - LABS 09/06/2018 12:00 AM FILM OR TAPE LIBRARIAN documented in this encounter Results * SCAN - LABS (09/06/2018 12:00 AM FILM OR TAPE LIBRARIAN) Narrative 09/06/2018 12:00 AM FILM OR TAPE LIBRARIAN Ordered by an unspecified provider. us Historical Provider Final Res ult documented in this encounter Visit Diagnoses Not on filedocumented in this encounter Additional Health Concerns Infection Onset Date Last Indicated Resolved Time COVID19 Comment:Added from the Screening question BPA, identifying patients that tested positive for COVID in the last 14 days and the result is from a facility outside [facility] . 06/28/2022 06/28/2022 07/08/2022 3:06 AM FILM OR TAPE LIBRARIAN documented as of this encounter Care Teams Student Services Director Relationship Specialty Start Date End Date Ryan Ceballos MD [address] [place] [address] PCP - General 09/15/16 09/25/19 Denny Morejon Jr., BETHANY [address] [place] [address] PCP - General 09/26/19 02/21/21 Ryan Ceballos MD [address] [place] [address] PCP - General 02/22/21 Elisabet Stoddard MD [address] [address] Referring Physician Gynecology 04/01/24 documented as of this encounter
== END 2024-09-22 07:55 | disposition home or self-care (01) ==
LOC: ANHLAB 07:56
PROVIDERS: PCP Family Medicine; Visit Provider Internal Medicine
DX: E04.2 Nontoxic multinodular goiter (principal); E28.2 Polycystic ovarian syndrome
CPT/HCPCS: 36415; 82533; 96372; J0834

== ENCOUNTER 2024-10-21 12:55 | Outpatient (CLI) | payer OTHER, SELFPAY ==
--- NOTE | ~2024-10-21 | US_ITS ---
EXAMINATION: US FNA w image guidance DATE: 10/21/2024 14:02 INDICATION: Right thyroid nodule. TECHNIQUE: The procedure and its benefits and risks were discussed with the patient. Risks specifically discusse d included bleeding. The patient verbalized understanding of the risks and agreed to proceed. The nec k was prepped and draped in the usual sterile manner. 1% lidocaine was used for local anesthesia. 7 passes were made with a 25G needle into the lesion under ultrasound guidance. There were no immedia te complications. FINDINGS: Grayscale ultrasound images demonstrate needles advanced into an 11 mm nodule in right thyroid lobe f or biopsy. IMPRESSION: 1. Ultrasound-guided fine needle aspiration of a right thyroid nodule. Reviewed, dictated and finalized at location A.
--- OUTSIDE RECORDS SUMMARY | 2024-10-21 14:55 | XMS_ITS | Encounter Summary ---
Author Organization [facility] Healthcare Address [address] [place] [address] Care Team Providers Care Compliance Engineer Products Name Role Phone Ryan Ceballos MD Primary Care Provid er BETHANY Morejon Jr., Robert James Primary Care Provide r Ryan Ceballos MD Primary Care Provid er Elisabet Stoddard MD Unavailable [phone] Encounter Details Date Type Department Care Team (Late st Contact Info) Description 09/15/2016 Orders Only [facility] Health Information Management [address] [place] [address] Scanning, Provider Social History Tobacco Use Types Packs/Day Years Used Date Smoking Tobacco: Never Assessed Comments Unknown Sex and Gender Information Value Date Recorded Sex Assigned at Not on file Legal Sex Female 2:54 AM REVENUE CYCLE SPECIALIST Gender Identity Not on file Sexual Orientation [...] the result is from a facility outside [facility] . 06/28/2022 06/28/2022 07/08/2022 3:06 AM REVENUE CYCLE SPECIALIST documented as of this encounter Care Teams Compliance Engineer Products Relationship Specialty Start Date End Date Ryan Ceballos MD [address] [place] [address] PCP - General 09/15/16 09/25/19 Denny Morejon Jr., PA [address] [place] [address] PCP - General 09/26/19 02/21/21 Ryan Ceballos MD [address] [place] [address] PCP - General 02/22/21 Elisabet Stoddard MD [address] [id number] Referring Physician Gynecology 04/01/24 documented as of this encounter
--- OUTSIDE RECORDS SUMMARY | 2024-10-21 14:55 | XMS_ITS | Encounter Summary ---
Author Organization [employer] Address [address] [place] [address] Care Team Providers Care Veneer Jointer Offbearer Name Role Phone Unavailable Primary Care Provider [...] on file Legal Sex Female 3:41 AM TREASURY MANAGEMENT SALES CONSULTANT Gender Identity Not on file Sexual Orientation Not on file documented as of this encounter Plan of Treatment Not on file documented as of this encounter Visit Diagnoses Diagnosis Sprain of lumbar region- Primary documented in this encounter
--- OUTSIDE RECORDS SUMMARY | 2024-10-21 14:55 | XMS_ITS ---
Author Organization [facility] Address [address] [place] [address] Care Team Providers Care Patient Registration Supervisor Name Role Phone Ryan Ceballos MD Primary Care Provider Unavail able Cee Jose Unavailable [phone] REASON FOR VISIT Patch testing Medications Medication SIG (Take, Route, Frequency, Duration) Notes Start Date End Date Status Triamcinolone Acetonide 0.1 % 1 application Externally Twice a day for 7 days 07/01/2024 Active Encounters Encounter Location Date Provider Diagnosis [address] [address] 07/01/2024 Cee Jose Rash and other nonspecific [...] * Colby REZA: 9 (44 yo F)Acc No.[id number]:07/01/2024 Patient: Mariam FORD :1980 A ge:44 Y S ex:Female Address:[address] [facility], [place] [address] * Refills Stop TRIAMCINOLONE ACETONIDE TOPICAL lotion, 0.1%, applied topically, 1 sharon, 3 times a day, 30 days Start Triamcinolone Acetonide Ointment, 0.1 %, Externally, 30 g, 1 application, Twice a day, 7 days, Refills=0 * true * Date: Generated for Rosmery kimball/Preeti/Dimasitting on: 0 10/21/2024 02:55 PM CDT
--- OUTSIDE RECORDS SUMMARY | 2024-10-21 14:55 | XMS_ITS | Clinical Summary ---
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 Gender Identity Not on file Sexual Orientation Not on file Plan of Treatment Health Maintenance Due Date Last Done Comments Hepatitis C Virus (HCV) Screening 1980 TdaP Immunization 1980 Hepatitis B Immunization (1 of 3 - 19+ 3-dose series) 1998 Colonoscopy 02/10/2024 Colorectal Cancer Screening 02/10/2024 Influenza Immunization (#1) 03/30/202408/2019, 06/06/2019, 05/28/2018, Additional history exists SARS-COV-2 Immunization (2023- season) 2024 Respiratory Syncytial Virus (RSV) Immunization (Adult) (1 - 1-dose 75+ series) 2054 Meningococcal Immunization (ACWY) Aged Out No longer eligible based on patient's age to complete this topic Pneumococcal Immunization Combined Aged Out No longer eligible based on patient's age to complete this topic Rotavirus Immunization Aged Out No lo nger eligible based on patient's age to complete this topic
--- OUTSIDE RECORDS SUMMARY | 2024-10-21 14:55 | XMS_ITS | Encounter Summary ---
Author Organization [facility] Address [address] [place] [address] Phone Care Team Providers Care Analyst Name Role Phone Ryan Ceballos MD Primary Care Provid er BETHANY Morejon Jr., Denny Andre Primary Care Provide r Ryan Ceballos MD Primary Care Provid er Elisabet Stoddard MD Unavailable [phone] Encounter Details Date Type Department Care Team (Latest Contact Info) Description 12/06/2018 Orders Only [facility] Scanning, Provider Social History Tobacco Use Types Packs/Day Years Used Date Smoking Tobacco: Never Assessed Comments Unknown Sex and Gender Information Value Date Recorded Sex Assigned at Not on file Legal 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 06/28/2022 06/28/2022 07/08/2022 3:06 AM TRACTOR DRIVER documented as of this encounter Care Teams Analyst Relationship Specialty Start Date End Date Ryan Ceballos MD [address] [place] [address] PCP - General 09/15/16 09/25/19 Denny Morejon Jr., PA [address] [place] [address] PCP - General 09/26/19 02/21/21 Ryan Ceballos MD [address] [place] [address] PCP - General 02/22/21 Elisabet Stoddard MD [address] [address] Referring Physician Gynecology 04/01/24 documented as of this encounter
--- OUTSIDE RECORDS SUMMARY | 2024-10-21 14:55 | XMS_ITS | Clinical Summary ---
Author Organization [facility] Address [address] 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 Gender Identity Not on file Sexual Orientation Not on file Plan of Treatment Health Maintenance Due Date Last Done Comments DTAP/TDAP/TD VACCINES (1 - Tdap) 1998 HEPATITIS B VACCINES (1 of 3 - 19+ 3-dose series) 1998 PAP SMEAR 02/10/2000 CERVICAL CANCER SCREENING 2009 HPV/Cotest 2009 PAP SMEAR 2009 BREAST CANCER SCREENING 2019 COLORECTAL SCREENING 02/10/2024 Colorectal Cancer Screening 02/10/2024 FIT-DNA Q 3 years 02/10/2024 FIT/FOBT Q 1 year 02/10/2024 Flex Sig/CT Colonography Q 5 years 02/10/2024 INFLUENZA VACCINE (#1) 2024 HPV VACCINES Aged Out No longer eligi ble based on patient's age to complete this topic
--- OUTSIDE RECORDS SUMMARY | 2024-10-21 14:55 | XMS_ITS | Encounter Summary ---
Author Organization [facility] Facility Care Team Providers Care Feather Edger Name Role Phone Ryan Ceballos MD Primary Care Provid er BETHANY Morejon Jr., Robert James Primary Care Provide r Ryan Ceballos MD Primary Care Provid er Elisabet Stoddard MD Unavailable [phone] Encounter Details Date Type Department Care Team (Latest Contact Info) Description 08/21/2016 Orders Only [facility] Provider, MD Diamond [address] [place] [address] Social History Tobacco Use Types Packs/Day Years Used Date Smoking Tobacco: Never Assessed Comments Unknown Sex and Gender Information Value Date Recorded Sex Assigned at Not on file Legal Sex Female 2:54 AM STRIPPING SHOVEL OILER Gender Identity Not on file Sexual Orientation Not on file documented as of this encounter Plan of Treatment Not on file documented as of this encounter Procedures Procedure Name Priority Date/Time Associated Diagnosis Comments SCAN - PATHOLOGY 08/21/2016 12:0 0 AM STRIPPING SHOVEL OILER documented in this encounter Results * SCAN - PATHOLOGY (08/21/2016 12:00 AM STRIPPING SHOVEL OILER) Narrative 08/21/2016 12:00 AM STRIPPING SHOVEL OILER Ordered by an unspecified provider. us Historical Provider Final Res ult documented in this encounter Visit Diagnoses Not on filedocumented in this encounter Additional Health Concerns Infection Onset Date Last Indicated Resolved Time COVID19 Comment:Added from the Screening question BPA, identifying patients that tested positive for COVID in the last 14 days and the result is from a facility outside [facility] . 06/28/2022 06/28/2022 07/08/2022 3:06 AM STRIPPING SHOVEL OILER documented as of this encounter Care Teams Feather Edger Relationship Specialty Start Date End Date Ryan Ceballos MD [address] [place] [address] PCP - General 09/15/16 09/25/19 Denny Morejon Jr., PA [address] [place] [address] PCP - General 09/26/19 02/21/21 Ryan Ceballos MD [address] [place] [address] PCP - General 02/22/21 Elisabet Stoddard MD [address] [address] Referring Physician Gynecology 04/01/24 documented as of this encounter
--- OUTSIDE RECORDS SUMMARY | 2024-10-21 14:55 | XMS_ITS | Encounter Summary ---
Author Organization [facility] Facility Care Team Providers Care Associate Professor Of Media Arts Name Role Phone Ryan Ceballos MD Primary Care Provid er BETHANY Morejon Jr., Robert James Primary Care Provide r Ryan Ceballos MD Primary Care Provid er Elisabet Stoddard MD Unavailable [phone] Encounter Details Date Type Department Care Team (Latest Contact Info) Description 05/24/2016 Orders Only [facility] Provider, MD Diamond [address] [place] [address] Social History Tobacco Use Types Packs/Day Years Used Date Smoking Tobacco: Never Assessed Comments Unknown Sex and Gender Information Value Date Recorded Sex Assigned at Not on file 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 06/28/2022 06/28/2022 07/08/2022 3:06 AM CANDY CUTTER MACHINE documented as of this encounter Care Teams Associate Professor Of Media Arts Relationship Specialty Start Date End Date Ryan Ceballos MD [address] [place] [address] PCP - General 09/15/16 09/25/19 Denny Morejon Jr., PA [address] [place] [address] PCP - General 09/26/19 02/21/21 Ryan Ceballos MD [address] [place] [address] PCP - General 02/22/21 Elisabet Stoddard MD [address] [address] Referring Physician Gynecology 04/01/24 documented as of this encounter
--- OUTSIDE RECORDS SUMMARY | 2024-10-21 14:55 | XMS_ITS ---
Author Organization [facility] Address [address] [place] [address] Care Team Providers Care Lock Stitch Channeler Name Role Phone Ryan Ceballos MD Primary Care Provider Unavail Cee Pereira Unavailable [phone] REASON FOR VISIT Rx Medications Medication SIG (Take, Route, Frequency, Duration) Notes Start Date End Date Status XYZAL 5 mg 1 tablet PO daily for 90 days Active Encounters Encounter Location Date Provider Diagnosis [address] [address] 07/08/2024 Cee Jose Allergic rhinitis due to [...] * Colby REZA: 9 (44 yo F)Acc No.[id number]:07/08/2024 Patient: Mariam FORD :1980 A ge:44 Y S ex:Female [address] [place] [address] * Refills Refill XYZAL tablet, 5 mg, PO, 90, 1 tablet, daily, 90 days, Refills=1 * true * Date: Generated for Rosmery kimball/Preeti/Derick on: 0 10/21/2024 02:55 PM CDT
--- OUTSIDE RECORDS SUMMARY | 2024-10-21 14:55 | XMS_ITS | Clinical Summary ---
Author Organization [facility] Address [facility] [place] [address] Care Team Providers Care City Tax Auditor Name Role Phone Ryan Ceballos MD Primary Care Provider [phone] Social History Tobacco Use Types Packs/Day Years [...] patient's age to complete this topic Insurance [facility] Care Teams City Tax Auditor Relationship Specialty Start Date End Date Ryan Ceballos MD [address] [place] [address] PCP - General 07/28/16
--- OUTSIDE RECORDS SUMMARY | 2024-10-21 14:55 | XMS_ITS | Data Portability ---
Author Organization [facility] Address [address] [place] [address] Assessment No assessment recorded. Plan of Treatment Reminders Order Date Submit Date Provider Last Modified By Organization Details Last Modified Time Details Appointments None recorded. Lab rapid strep group A, throat 2022 023 [address] Main Office, [address] [place], [address], 14:56:06 Referral None recorded. Procedures None recorded. Surgeries None recorded. Imaging None recorded. Medication Orders amoxicillin 500 mg capsule 2022 023 [id number], [address], [place], [address], 14:56:08 Patient TargetsNo targets recorded. Patient InstructionsNo instructions recorded. Reason for Referral None Reported. Results Created Date Observation Date Name Description Value Unit Range Abnormal Flag Note LastModifiedBy Organization Detail LastModifiedTime 11/04/1911/03/2022 rapid strep group A, throa t Strep positi ve Not Available Main Office [address] [place], [address], 11/03/2022 14:40:58 Result Notes None recorded. Medical [...] SNOMED-CT Code Diagnosis ICD10 Code Diagnosis Note 16369 Nasrin Butler MD Main Office [address] [place] [address] 11/03/2022 14:20:19 11/03/2022 15:04:46 Streptococcal sore throat 02157153 J02.0 Health Concerns Section Related Observation LastModified by Organization Detai ls LastModified Time None Recorded Concern Status LastModified by Organization Details LastModified Time None Recorded Advance Directives Directive None Recorded Payers Encounter Date Sequence Insurance Name Policy Number Policy Duke Covered Member ID Duke Member ID Guarantor Name 11/03/2022 1 [facility] Warner Fernándezpilloyessi [id number] Warner Molina Notes Date Note Type Note Provider Name and Address Organization Details Recorded Time 11/03/2022 text/html Patient here for nurse-only visit {{vaccination l ab test*}}. Nasrin Butler MD [address] [facility], [place], [address], [facility] 11/03/2022 14:56:25 OBGyn Episode No OBEpisode recorded.
--- OUTSIDE RECORDS SUMMARY | 2024-10-21 14:55 | XMS_ITS | Encounter Summary ---
Author Organization [facility] Facility Care Team Providers Care Limousine And Hearse Upholsterer Name Role Phone Ryan Ceballos MD Primary Care Provid er BETHANY Morejon Jr., Robert James Primary Care Provide r Ryan Ceballos MD Primary Care Provid er Elisabet Stoddard MD Unavailable [phone] Encounter Details Date Type Department Care Team (Latest Contact Info) Description 09/06/2018 Orders Only [facility] Provider, MD Diamond [address] [place] [address] Social History Tobacco Use Types Packs/Day Years Used Date Smoking Tobacco: Never Assessed Comments Unknown Sex and Gender Information Value Date Recorded Sex Assigned at Not on file Legal Sex Female 2:54 AM NON PROFIT JOB TITLES Gender Identity Not on file Sexual Orientation Not on file documented as of this encounter Plan of Treatment Not on file documented as of this encounter Procedures Procedure Name Priority Date/Time Associated Diagnosis Comments SCAN - LABS 09/06/2018 12:00 AM NON PROFIT JOB TITLES documented in this encounter Results * SCAN - LABS (09/06/2018 12:00 AM NON PROFIT JOB TITLES) Narrative 09/06/2018 12:00 AM NON PROFIT JOB TITLES Ordered by an unspecified provider. us Historical [...] HOSPITAL . 06/28/2022 06/28/2022 07/08/2022 3:06 AM NON PROFIT JOB TITLES documented as of this encounter Care Teams Limousine And Hearse Upholsterer Relationship Specialty Start Date End Date Ryan Ceballos MD [address] [place] [address] PCP - General 09/15/16 09/25/19 Denny Morejon Jr., BETHANY [address] [place] [address] PCP - General 09/26/19 02/21/21 Ryan Ceballos MD [address] [place] [address] PCP - General 02/22/21 Elisabet Stoddard MD [address] [address] Referring Physician Gynecology 04/01/24 documented as of this encounter
--- OUTSIDE RECORDS SUMMARY | 2024-10-21 14:56 | XMS_ITS | Referral Summary ---
Author Organization [facility] Address [address] [place] [address] Care Team Providers Care It Recruiter Name Role Phone Ryan Ceballos MD Primary Care Provid er Elisabet Stoddard MD Unavailable [phone] Encounters Date Type Department Care Team Description 09/17/2024 Results Follow-Up [facility] G[facility]ology [address] [facility] 12th [place] [address] [place] [address] Jorge Crespo MD 09/16/2024 11:14 AM BAIL ATTACHER - 09/16/2024 11:59 PM BAIL ATTACHER Hospital Encounter [facility] Radiology [address] [place] [address] of liver Discharge Disposition: Discharge to home or self care 09/05/2024 Orders Only [facility] G[facility] [address] [facility] Medicine 12th [place] [address] [place] [address] Luisa Hernandez RN Abnormal CT of liver (Primary Dx) 09/05/2024 Telephone Radiology 1 [place] [address] Cee Daniel RT 09/05/2024 Orders Only [facility] G[facility] [address] [facility] Medicine 12th [place] [address] [place] [address] Luisa Hernandez RN Abnormal CT of liver (Primary Dx); Cirrhosis of liver without ascites, unspecified hepatic cirrhosis type (HCC); 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 12th [place] [address] [place] [address] Abnormal finding on GI tract imaging 08/25/2024 11:20 AM BAIL ATTACHER Office Visit [facility] [address] [facility] 12th [place] [address] [place] [address] Jorge Crespo MD Abnormal finding on GI tract imaging (Primary Dx); Abnormal CT of liver 08/06/2024 12:15 PM BAIL ATTACHER Office Visit [facility] [address] [phone] Ryan Ceballos MD Dysfunction of right eustachian [...] inhaler daily Active dicyclomine (BENTYL) 20 mg tabletIndication s:Abdominal pain TAKE 1 TABLET (20 MG TOTAL) BY MOUTH EVERY 6 HOURS NEEDED FOR ABDOMINAL PAIN 60 tablet 3 3 Active ketoconazole (NIZORAL) 2 % shampoo 3 Active omeprazole (PriLOSEC) 20 mg capsuleIndicatio ns:Gastroesophag eal reflux disease without esophagitis Take 1 capsule (20 mg total) by mouth daily before breakfast 90 capsule 3 4 Active Additional Information Patient not taking.Reported on 09/16/2024 MAGNESIUM ORAL Take by mouth A ctive metoprolol XL (TOPROL-XL) 25 mg extended release tabletIndication s:Tachycardia Take 1 tablet (25 mg total) by mouth daily 90 tablet 3 4 Active Active Problems Problem Noted Date Diagnosed Date Cirrhosis of liver without ascites 08/29/2024 Assessment & Plan (08/29/2024 9:00 AM BAIL ATTACHER): Noted on CT scan November 2022. Patient [...] diarrhea Assessment & Plan (08/29/2024 9:09 AM BAIL ATTACHER): Abdominal pain off and on for 3-4 [...] diet Assessment & Plan (08/19/2023 10:24 AM BAIL ATTACHER): -xifaxan tid 14 days Allergic rhinitis 08/22/2022 [...] will consider HIDA scan -we will refill Antonellayl Assessment & Plan (08/14/2022 11:29 AM BAIL ATTACHER): Abdominal pain off and on for 3-4 [...] 08/14/2022 Assessment & Plan (08/29/2024 9:00 AM BAIL ATTACHER): Chronic GERD, takes PPI daily and Pepcid [...] loss Assessment & Plan (08/19/2023 10:21 AM BAIL ATTACHER): Chronic GERD, takes Pepcid 40 mg p.o. [...] loss Assessment & Plan (08/14/2022 11:30 AM BAIL ATTACHER): Chronic GERD, takes Pepcid 40 mg p.o. [...] 08/14/2022 Assessment & Plan (08/19/2023 10:21 AM BAIL ATTACHER): CT scan while in the ER May [...] up with PCP regarding kidney stones -follows [facility] Assessment & Plan (04/09/2023 10:36 AM CDT): [...] evaluation Assessment & Plan (08/14/2022 11:30 AM BAIL ATTACHER): CT scan while in the ER May 2022 showing ileitis with involvement of the terminal ileum, likely infectious and/or inflammatory. -colonoscopy as above Diarrhea 08/14/2022 Assessment & Plan (08/19/2023 10:23 AM BAIL ATTACHER): Chronic, intermittent. Stool studies negative July 2022. [...] colitis. Assessment & Plan (08/14/2022 11:30 AM BAIL ATTACHER): Chronic, intermittent. -we will order labs and [...] on file Legal Sex Female 2:54 AM BAIL ATTACHER Gender Identity Not on file Sexual Orientation Not on file Last Filed Vital Signs Vital Sign Reading Time Taken Comments Blood Pressure 99/66 09/16/2024 3:00 PM BAIL ATTACHER Pulse 62 09/16/2024 3:00 PM BAIL ATTACHER Temperature 37 C (98.6 F) 09/16/2024 12:09 PM BAIL ATTACHER Respiratory Rate 11 09/16/2024 3:00 PM BAIL ATTACHER Oxygen Saturation 97% 09/16/2024 3:00 PM BAIL ATTACHER Inhaled Oxygen Concentration - - Weight 63.5 kg (140 lb) 09/16/2024 12:09 PM BAIL ATTACHER Height 162.6 cm (5' 4 ) 09/16/2024 12:09 PM BAIL ATTACHER Body Mass Index 24.03 09/16/2024 12:09 PM BAIL ATTACHER Plan of Treatment Not on file Medical Devices Implanted Type Area Coping Machine Assembler Device Identifier Shelf Expiration Date Model / Serial / Lot [employer] [facility] Trimark Mri Guided Rigid Deployment Device Cork Marker Breast Trimark Td 13-Mr - [id number] Implanted:Qty: 1 on 04/25/2024 at [facility] Right: Breast [employer] [id number] 09/04/2024 TRIMARK TD 13-MR / / [id number] Procedures Procedure Name Priority Date/Time Associated Diagnosis Comments US GUIDED BIOPSY LIVER Schedule Routine, Read Routine (OP Routine) 09/16/2024 1:11 PM BAIL ATTACHER Abnormal CT of liver SURGICAL PATHOLOGY Routine 09/16/2024 12 :47 PM BAIL ATTACHER Abnormal CT of liver PROTIME-INR Routine 09/11/2024 12:07 PM BAIL ATTACHER Abnormal CT of liver CBC WITH AUTO DIFFERENTIAL Routine 09/11/2024 12:06 PM BAIL ATTACHER Abnormal CT of liver LIVER ELASTOGRAPHY W/O IMAGING W/I&R Routine 08/26/2024 8:43 AM BAIL ATTACHER Abnormal finding on GI tract imaging SCREENING MAMMOGRAM BILATERAL W RALF Schedule Routine, Read Routine (OP Routine) 02/11/2024 10:02 AM CDT Screening mammogram, encounter for HM PAP SMEAR Routine 11/08/2023 COLONOSCOPY 10/25/2022 12:10 PM CDT from Last 3 Months or Most Recently Relevant to Health Maintenance Results * US Guided Biopsy Liver (09/16/2024 1:11 PM BAIL ATTACHER) Anatomical Region Laterality Modality Leg N/A X-Ray Angiograph y 09/16/2024 1:31 PM BAIL ATTACHER Impressions 09/16/2024 5:04 PM BAIL ATTACHER 1. Successful ultrasound-guided core needle biopsy of random liver. 2. Please see separate Surgical Pathology results for final interpretation. Dictated by: Mario Styles M.D. The radiology attending physician has personally reviewed this study, and had reviewed and/or edited this written report and agrees with it. Electronically signed by: Corbin Arana M.D. Narrative 09/16/2024 5:04 PM BAIL ATTACHER EXAMINATION: ULTRASOUND-GUIDED RANDOM LIVER CORE BIOPSY HISTORY: [...] placed in formalin and submitted to the direct service provider service for delivery to Surgical Pathology. The [...] placed in formalin and submitted to the direct service provider service for delivery to Surgical Pathology. The [...] results for final interpretation. Dictated by: Mario Stlyes M.D. The radiology attending physician has personally reviewed this study, and had reviewed and/or edited this written report and agrees with it. Electronically signed by: Corbin Arana M.D. Jorge Crespo MD IM US PROCEDURES Saskia l Result * Surgical pathology (09/16/2024 12:47 PM BAIL ATTACHER) Tissue (Liver, Biopsy, Needle Medical) 09/16/2024 12:47 PM BAIL ATTACHER Comment:US RT liver core bio psy History of elevared liver enzymes Narrative PATHOLOGY [facility] - 09/17/2024 5:17 PM BAIL ATTACHER EPIC results best viewed via link to PDF [facility] [address] [facility] [place] [address] Note to Patients: This report may contain [...] Gender: F : 1980 (Age: 44) Address: [address] [place] [id number] Hospital #: [id number] Taken:09/16/2024 Received:09/16/2024 Reported: 09/17/2024 Patient Type: [facility] Ancillary Service: UNKNOWN Location: [facility] IR Physician(s): Francine Contreras MD Jeffrey S. Crippin, M.D. Diagnosis: Liver, [place], right, ultrasound-guided biopsy: - Focal mild portal inflammation. - Minimal macrovesicular steatosis involving < 5% of hepatic parenchyma. - No increase in fibrosis (trichrome and reticulin stains). - Iron stain is negative. - PAS-D stain is negative for intracytoplasmic globules in periportal hepatocytes. [facility]/09/17/2024 15:07 By this signature, I attest [...] diameter. Labeled A1 to A2. Jar [facility]. [facility]09/16/2024 18:50 PA(s): Leelee Paulino By this signature, I attest that the above diagnosis is based upon my personal examination of the slides(and/or other material). Addenda/Procedures The performance characteristics of some immunohistochemical stains, fluorescence in-situ hybridization tests and immunophenotyping by flow cytometry cited in this report (if any) were determined by the Surgical Pathology and Flow Cytometry Departments at [facility] as part of an ongoing design quality engineer program and in compliance with federally mandated [...] Surgical Pathology and Flow Cytometry Departments of [facility]. It has not been cleared or approved by the U. S. Food and Drug Administration. IMAGES AND SCANNED DOCUMENTS, IF INCLUDED, ONLY VIEWABLE IN PDF VERSION OF REPORT Jorge Crespo MD LAB PATHOLOGY ORDERABL ES Final Result PATHOLOGY [facility] 3rd Floor [place], [place] [phone] * Protime-INR (09/11/2024 12:07 PM BAIL ATTACHER) INR 1.0 0.9 - 1.2 [facility] - 01 Comment: Reference interval is for non-anticoagulated patients. Suggested INR therapeutic range for Vitamin K antagonist therapy: Standard Dose (moderate intensity therapeutic range): 2.0 - 3.0 Higher intensity therapeutic range 2.5 - 3.5 PT 11.0 9.1 - 12.0 sec [facility] - 01 Blood 09/11/2024 12:0 7 PM BAIL ATTACHER 09/11/2024 Narrative [facility] - 09/12/2024 6:09 AM BAIL ATTACHER Performed at: 01 - [facility] [address] [id number] Gate Attendant: Warren Gaona PhD, Phone: [phone] Jorge Crespo MD LAB BLOOD ORDERABLES F inal Result [facility] - 01 * CBC with auto differential (09/11/2024 12:06 PM BAIL ATTACHER) [facility] WBC 7.4 3.4 - 10.8 x10E3/uL [facility] [...] - 01 Blood 09/11/2024 12:0 6 PM BAIL ATTACHER 09/11/2024 Narrative [facility] - 09/12/2024 5:07 AM BAIL ATTACHER Performed at: [address] [id number] Gate Attendant: Warren Gaona PhD, Phone: [phone] Jorge Crespo MD LAB BLOOD ORDERABLES F inal Result [facility] - 01 * Liver Elastography w/o Imaging W/I&R -[facility] (All Locations) (08/26/2024 8:43 AMCST) Anatomical Region [...] compared to prior imaging studies performed at [place], [place] on 12/21/2020, 01/02/2022 and 02/08/2023. The [...] compared to prior imaging studies performed at [place], [place] on 12/21/2020, 01/02/2022 and 02/08/2023. The [...] Davies MD - 10/25/2022 12:10 PM CDT [facility] Patient Name: Lisa Reza Procedure Date: 10/25/2022 12:10 PM Date of : 1980 Admit Type: Outpatient Age: 42 Gender: Female Attending MD: Dung Davies M.D. Room: [facility] ENDOSCOPY ROOM 06 Note Status: Finalized [...] The scope was passed under direct vision.The [id number] colonoscope was introduced through theanus and advanced [...] On: 10/25/2022 12:10 PM Recognized by the [place] [employer] for promoting quality in endoscopy Dung Davies MD ENDOSCOPY PROCEDURES Final Resul t from Last 3 Months or Most Recently Relevant to Health Maintenance Insurance [facility] CHOICE PLUS [facility] CHO[facility] PLUS [facility] CHO[facility] PLUS Advance Directives For more information, please contact: [phone] * Full Code (Latest Code Status on File) Date Activated Date Inactivated Comments 09/16/2024 12:07 PM 09/17/2024 4:53 AM Care Teams It Recruiter Relationship Specialty Start Date End Date Ryan Ceballos MD [address] [place], [place] [phone] PCP - General 02/22/21 Elisabet Stoddard MD [address] [address] (work) Referring Physician Gynecology 04/01/24
--- OUTSIDE RECORDS SUMMARY | 2024-10-21 14:56 | XMS_ITS | Clinical Summary ---
Author Organization [facility] Address [address] [place] [address] Care Team Providers Care Portrait Photographer Name Role Phone Ryan Ceballos MD Primary Care Provid er Elisabet Stoddard MD Unavailable [phone] Allergies Active Allergy Reactions Criticality Noted Date [...] 08/29/2024 Assessment & Plan (08/29/2024 9:00 AM REGIONAL WILDLIFE AGENT): Noted on CT scan November 2022. Patient [...] 4 Assessment & Plan (08/29/2024 9:09 AM REGIONAL WILDLIFE AGENT): Abdominal pain off and on for 3-4 [...] diet Assessment & Plan (08/19/2023 10:24 AM REGIONAL WILDLIFE AGENT): -xifaxan tid 14 days Allergic rhinitis 08/22/2022 [...] Bentyl Assessment & Plan (08/14/2022 11:29 AM REGIONAL WILDLIFE AGENT): Abdominal pain off and on for 3-4 [...] 08/14/2022 Assessment & Plan (08/29/2024 9:00 AM REGIONAL WILDLIFE AGENT): Chronic GERD, takes PPI daily and Pepcid [...] loss Assessment & Plan (08/19/2023 10:21 AM REGIONAL WILDLIFE AGENT): Chronic GERD, takes Pepcid 40 mg p.o. [...] loss Assessment & Plan (08/14/2022 11:30 AM REGIONAL WILDLIFE AGENT): Chronic GERD, takes Pepcid 40 mg p.o. [...] 08/14/2022 Assessment & Plan (08/19/2023 10:21 AM REGIONAL WILDLIFE AGENT): CT scan while in the ER May [...] up with PCP regarding kidney stones -follows [facility] Assessment & Plan (04/09/2023 10:36 AM [...] evaluation Assessment & Plan (08/14/2022 11:30 AM REGIONAL WILDLIFE AGENT): CT scan while in the ER May 2022 showing ileitis with involvement of the terminal ileum, likely infectious and/or inflammatory. -colonoscopy as above Diarrhea 08/14/2022 Assessment & Plan (08/19/2023 10:23 AM REGIONAL WILDLIFE AGENT): Chronic, intermittent. Stool studies negative July 2022. [...] colitis. Assessment & Plan (08/14/2022 11:30 AM REGIONAL WILDLIFE AGENT): Chronic, intermittent. -we will order labs and [...] Department Care Team Description 09/17/2024 Results Follow-Up [facility] Gasteroenterology [facility] 12th [place] [address] [place] [address] Jorge Crespo MD 09/16/2024 11:14 AM REGIONAL WILDLIFE AGENT - 09/16/2024 11:59 PM REGIONAL WILDLIFE AGENT Hospital Encounter [facility] Radiology [address] [place] [address] of liver Discharge Disposition: Discharge to home or self care 09/05/2024 Orders Only [facility] Gastroenterology [address] [facility] 12th [place] [address] [place] [address] Luisa Hernandez RN Abnormal CT of liver (Primary Dx) 09/05/2024 Telephone Radiology 1 [place], [place] [address]Cee Wu, RT 09/05/2024 Orders Only [facility] Gastroenterology [address] [facility] 12th [place] [address] [place] [address] Lusia Hernandez RN Abnormal CT of liver (Primary Dx); Cirrhosis of liver without ascites, unspecified hepatic cirrhosis type (HCC); 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) 08/29/2024 8:30 AM REGIONAL WILDLIFE AGENT Office Visit [facility] Gastroenterology at [address] [place] [id number] Dung Davies MD Irritable bowel syndrome with diarrhea (Primary Dx); Cirrhosis of liver without ascites, unspecified hepatic cirrhosis type (HCC); Gastroesophageal reflux disease without esophagitis 08/25/2024 11:30 AM REGIONAL WILDLIFE AGENT Procedure visit [facility] Gastroenterology [address] [place] [address] [place] [address] [place] [address] Abnormal finding on GI tract imaging 08/25/2024 11:20 AM REGIONAL WILDLIFE AGENT Office Visit [facility] Gastroenterology [address] [place] [address] 12th [place] [address] [place] [address] Jorge Crespo MD Abnormal finding on GI tract imaging (Primary Dx); Abnormal CT of liver 08/06/2024 12:15 PM REGIONAL WILDLIFE AGENT Office Visit [facility] Family Medicine [address] [address] Ryan Ceballos MD Dysfunction of right eustachian [...] Monet Collazo Heart attack Maternal Grandfather Blayne Brace Heart disease Maternal Grandfather Blayne Bowles Stroke Maternal Grandfather Blayne Bowles Breast cancer Maternal Grandmother Laura Brace Cancer Maternal Grandmother Laura Brace Kidney disease Maternal Grandmother Laura Brace Arthritis Mother Tessa Johnson Diabetes Mother Tessa Johnson Hyperlipidemia Mother Tessa Johnson Hypertension Mother Tessa Johnson Breast cancer Mother's Sister 1 Thyroid cancer Mother's Sister 1 Cancer Mother's Sister 2 Amy Mcgrath Alzheimer's disease Paternal Grandfather Oral Johnson Heart disease Paternal Grandfather Oral Johnson Prostate cancer Paternal Grandfather Oral Johnson Cancer Paternal Grandmother Dayton Johnson Diabetes Paternal Grandmother Dayton Johnson Heart disease Paternal Grandmother Dayton Johnson Uterine cancer Paternal Grandmother Dayton Johnson Mental illness Sister Dulce Relation Name Status Comments Cousin Daughter Jacquelyn Reza Father Flo Johnson Alive Alzheimers Father's Sister Monet Collazo Maternal Grandfather Blayne Bowles Maternal Grandmother Laura Bowles Mother Tessa Johnson Alive Mother's Sister 1 Mother's Sister 2 Amy Mcgrath Paternal Grandfather Oral Johnson Paternal Grandmother Dana Johnson Sister Dulce Social History Tobacco Use [...] on file Legal Sex Female 2:54 AM REGIONAL WILDLIFE AGENT Gender Identity Not on file Sexual Orientation Not on file Obstetrics History Para Term AB IAB SAB Ectopic Multiple Livin g Live Births 3 3 3 Date Outcome GA Total Labor Labor/2nd/3rd Weight Sex Type Anes PTL Malathi A1 A5 Name Clin Term Term Term Last Filed Vital Signs Vital Sign Reading Time Taken Comments Blood Pressure 99/66 09/16/2024 3:00 PM REGIONAL WILDLIFE AGENT Pulse 62 09/16/2024 3:00 PM REGIONAL WILDLIFE AGENT Temperature 37 C (98.6 F) 09/16/2024 12:09 PM REGIONAL WILDLIFE AGENT Respiratory Rate 11 09/16/2024 3:00 PM REGIONAL WILDLIFE AGENT Oxygen Saturation 97% 09/16/2024 3:00 PM REGIONAL WILDLIFE AGENT Inhaled Oxygen Concentration - - Weight 63.5 kg (140 lb) 09/16/2024 12:09 PM REGIONAL WILDLIFE AGENT Height 162.6 cm (5' 4 ) 09/16/2024 12:09 PM REGIONAL WILDLIFE AGENT Body Mass Index 24.03 09/16/2024 12:09 PM REGIONAL WILDLIFE AGENT Plan of Treatment Health Maintenance Due Date Last Done Comments Hepatitis C Screening 1980 DTaP/Tdap/Td Vaccine (1 - Tdap) 1990 Hepatitis B Screening 1997 Pneumococcal vaccine <65 (1 of 2 - PCV) 1998 Regular Well Visit/Exam 18-64 08/22/2023 08/22/2022, 08/22/2022 Covid-19 Vaccine (2023- season) 2024 07/13/2021, 11/05/2020, 10/15/2020 Breast Cancer [...] this topic Medical Devices Implanted Type Area Soil Specialist Device Identifier Shelf Expiration Date Model / Serial / Lot [employer] Mri Guided Rigid Deployment Device Cork Marker Breast Trimark Td 13-Mr - [id number] Implanted:Qty: 1 on 04/25/2024 at [facility] Right: Breast [employer] [id number] 09/04/2024 TRIMARK TD 13-MR / / [id number] Procedures Procedure Name Priority Date/Time Associated Diagnosis Comments US GUIDED BIOPSY LIVER Schedule Routine, Read Routine (OP Routine) 09/16/2024 1:11 PM REGIONAL WILDLIFE AGENT Abnormal CT of liver SURGICAL PATHOLOGY Routine 09/16/2024 12 :47 PM REGIONAL WILDLIFE AGENT Abnormal CT of liver PROTIME-INR Routine 09/11/2024 12:07 PM REGIONAL WILDLIFE AGENT Abnormal CT of liver CBC WITH AUTO DIFFERENTIAL Routine 09/11/2024 12:06 PM REGIONAL WILDLIFE AGENT Abnormal CT of liver LIVER ELASTOGRAPHY W/O IMAGING W/I&R Routine 08/26/2024 8:43 AM REGIONAL WILDLIFE AGENT Abnormal finding on GI tract imaging SCREENING MAMMOGRAM BILATERAL W RALF Schedule Routine, Read Routine (OP Routine) 02/11/2024 10:02 AM CDT Screening mammogram, encounter for HM PAP SMEAR Routine 11/08/2023 COLONOSCOPY 10/25/2022 12:10 PM CDT from Last 3 Months or Most Recently Relevant to Health Maintenance Results * US Guided Biopsy Liver (09/16/2024 1:11 PM REGIONAL WILDLIFE AGENT) Anatomical Region Laterality Modality Leg N/A X-Ray Angiograph y 09/16/2024 1:31 PM REGIONAL WILDLIFE AGENT Impressions 09/16/2024 5:04 PM REGIONAL WILDLIFE AGENT 1. Successful ultrasound-guided core needle biopsy of random liver. 2. Please see separate Surgical Pathology results for final interpretation. Dictated by: Mario Styles M.D. The radiology attending physician has personally reviewed this study, and had reviewed and/or edited this written report and agrees with it. Electronically signed by: Corbin Arana M.D. Narrative 09/16/2024 5:04 PM REGIONAL WILDLIFE AGENT EXAMINATION: ULTRASOUND-GUIDED RANDOM LIVER CORE BIOPSY HISTORY: [...] placed in formalin and submitted to the director federal service for delivery to Surgical Pathology. The [...] placed in formalin and submitted to the director federal service for delivery to Surgical Pathology. The [...] Corbin Arana M.D. Jorge Crespo MD [facility] US PROCEDURES Saskai l Result * Surgical pathology (09/16/2024 12:47 PM REGIONAL WILDLIFE AGENT) Tissue (Liver, Biopsy, Needle Medical) 09/16/2024 12:47 PM REGIONAL WILDLIFE AGENT Comment:US RT liver core bio psy History of elevared liver enzymes Narrative PATHOLOGY [facility] - 09/17/2024 5:17 PM REGIONAL WILDLIFE AGENT EPIC results best viewed via link to PDF [facility] [place] [address] Note to Patients: This report may contain [...] Gender: F : 1980 (Age: 44) Address: [address] [place] [address] Hospital #: [id number] Taken:09/16/2024 Received:09/16/2024 Reported: 09/17/2024 Patient Type: [facility] Ancillary Service: UNKNOWN Location: [facility] IR Physician(s): Francine Contreras MD Jeffrey S. Crippin, M.D. Diagnosis: Liver, apache, right, ultrasound-guided biopsy: - Focal mild portal inflammation. - Minimal macrovesicular steatosis involving < 5% of hepatic parenchyma. - No increase in fibrosis (trichrome and reticulin stains). - Iron stain is negative. - PAS-D stain is negative for intracytoplasmic globules in periportal hepatocytes. [facility]/09/17/2024 15:07 By this signature, I attest that [...] diameter. Labeled A1 to A2. Jar [facility]. [facility]09/16/2024 18:50 PA(s): Leelee Paulino By this signature, I attest that the above diagnosis is based upon my personal examination of the slides(and/or other material). Addenda/Procedures The performance characteristics of some immunohistochemical stains, fluorescence in-situ hybridization tests and immunophenotyping by flow cytometry cited in this report (if any) were determined by the Surgical Pathology and Flow Cytometry Departments at [facility] as part of an ongoing quality assurance lead program and in compliance with federally mandated [...] Surgical Pathology and Flow Cytometry Departments of [facility]. It has not been cleared or approved by the U. S. Food and Drug Administration. IMAGES AND SCANNED DOCUMENTS, IF INCLUDED, ONLY VIEWABLE IN PDF VERSION OF REPORT Jorge Crespo MD LAB PATHOLOGY ORDERABL ES Final Result PATHOLOGY [facility] 3rd Floor [place], [place] [phone] * Protime-INR (09/11/2024 12:07 PM REGIONAL WILDLIFE AGENT) INR 1.0 0.9 - 1.2 [facility] - 01 Comment: Reference interval is for non-anticoagulated patients. Suggested INR therapeutic range for Vitamin K antagonist therapy: Standard Dose (moderate intensity therapeutic range): 2.0 - 3.0 Higher intensity therapeutic range 2.5 - 3.5 PT 11.0 9.1 - 12.0 sec [facility] - 01 Blood 09/11/2024 12:0 7 PM REGIONAL WILDLIFE AGENT 09/11/2024 Narrative [facility] - 09/12/2024 6:09 AM REGIONAL WILDLIFE AGENT Performed at: 01 - [address] [id number] Personal Secretary: Warren Gaona PhD, Phone: [phone] Jorge Crespo MD LAB BLOOD ORDERABLES F inal Result [facility] - 01 * CBC with auto differential (09/11/2024 12:06 PM REGIONAL WILDLIFE AGENT) WBC 7.4 3.4 - 10.8 x10E3/uL [facility] [...] - 01 Blood 09/11/2024 12:0 6 PM REGIONAL WILDLIFE AGENT 09/11/2024 Narrative [facility] - 09/12/2024 5:07 AM REGIONAL WILDLIFE AGENT Performed at: 01 - [facility] [id number] Personal Secretary: Warren Gaona PhD, Phone: [phone] Jorge Crespo MD LAB BLOOD ORDERABLES F inal Result [facility] - 01 * Liver Elastography w/o Imaging W/I&R -[facility] (All Locations) (08/26/2024 8:43 AMCST) Anatomical [...] compared to prior imaging studies performed at [place], [place] on 12/21/2020, 01/02/2022 and 02/08/2023. The [...] compared to prior imaging studies performed at [place], [place] on 12/21/2020, 01/02/2022 and 02/08/2023. The [...] nal Result * HM PAP SMEAR (11/08/2023) [facility] Provider HEALTH MAINTENANCE Final Result * COLONOSCOPY (10/25/2022 12:10 PM CDT) Anatomical Region Laterality Modality Other Narrative Procedure Note Dung Davies MD - 10/25/2022 12:10 PM CDT [facility] GI ENDOSCOPY Patient Name: Lisa Reza Procedure Date: 10/25/2022 12:10 PM Date of : 1980 Admit Type: Outpatient Age: 42 Gender: Female Attending MD: Dung Davies M.D. Room: [facility] ENDOSCOPY ROOM 06 Note Status: Finalized Procedure: [...] The scope was passed under direct vision.The [id number]-[id number] colonoscope was introduced through theanus and advanced [...] On: 10/25/2022 12:10 PM Recognized by the [employer] for promoting quality in endoscopy Dung Davies MD ENDOSCOPY PROCEDURES Final Resul t from Last 3 Months or Most Recently Relevant to Health Maintenance Insurance [facility] CHOICE [facility] HMO/PPO Address: [place] [address] [facility]O [place]: [place] [address] [facility] CHOICE [facility] HMO/PPO Address: [facility] [id number] [place] [address] Advance Directives For more information, please contact: [phone] * Full Code (Latest Code Status on File) Date Activated Date Inactivated Comments 09/16/2024 12:07 PM 09/17/2024 4:53 AM Care Teams Portrait Photographer Relationship Specialty Start Date End Date Ryan Ceballos MD [facility] [address] [place] [address] PCP - General 02/22/21 Elisabet Stoddard MD [address] [address] Referring Physician Gynecology 04/01/24
--- OUTSIDE RECORDS SUMMARY | 2024-10-21 14:56 | XMS_ITS ---
Author Organization [facility] Address [address] [place] [address] Care Team Providers Care Doubler Operator Name Role Phone Ryan Ceballos MD Primary Care Provider Unavail able Damon Cee Unavailable [phone] Allergies Allergen (clinical drug ingredient) Drug/Non Drug [...] Start Date End Date Status Saline Mist [place] 0.65 % 2 spray(s) intranasally 4 times [...] 06/09/2024 Encounters Encounter Location Date Provider Diagnosis [address] [address] 06/09/2024 Cee Young Rash and other non [...] ACD. Patch testing was initiated Sunday using IRL Connecter test patch testing delivery system (most common [...] Notes Patch Testing (Please insert time stamp) Frederic Jazzy hensley Hay 06/09/2024 09:17:24 AM BUS OR TRUCK GARAGE MECHANIC > Patch testing ([id number]-Gjdah can Core Series) was performed using the Sviral NA-1000 t est patch testing delivery system (most common topical allergens causing delayed-type hypersensitivity reactions) , Positive reactions graded: IR (irritant reaction) to , Myroxylon pereirae resin / (Balsam [place]) , ++, Gold(I)sodium thiosulfate dihydrate , at 72 hours, The information from patch testing was placed into the [place] registry and a report regarding our clinical findings was e-mailed to the patient. 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 She has since had repeat normal hemoglobin levels so PV no longer suspected and aspirin never started. Today, she reports no fevers, chills, night sweats or other constitutional symptoms encid= [id number] >Mariam Reza, a 44 y/o female with [...] forced air heating. E nvironmental History 2: [id number] carpeting that is 2.5 years old, her [...] Tablet 1 tablet PO daily Saline Mist [place] 0.65 % Solution 2 spray(s) intranasally 4 [...] 1 tablet PO daily Not-Taking/PRN Saline Mist [place] 0.65 % Solution 2 spray(s) intranasally 4 [...] cyanosis, no edema. Influenza Vaccine not administered R suzie: N o reason specified Assessment: * Assessment: 1. R lizbeth and [...] aspirin doses >81 mg * Procedures: P [facility] Testing: (Please insert time stamp) Jett Jazzy crawford Hay 06/09/2024 09:17:24 AM BUS OR TRUCK GARAGE MECHANIC >. Patch testing (PO-0441-Tsawzvdp Core Series) w as performed using the Sviral NA-1000 test patch testing delivery system (most common topical allergens causing delayed-type hypersensitivity reactions), Positive reactions graded: IR (irritant reaction) to , Myroxylon pereirae resin / (Balsam [place]) , ++, Gold(I)sodium thiosulfate dihydrate , at 72 hours, The information from patch testing was placed into the [place] registry and a report regarding our clinical findings was e-mailed to the patient..? * Procedure Codes: G 8427 DOC MEDS VERIFIED W/PT OR [id number] Bernie Jose Incident-to * Preventive Medicine: Counseling: D iet C ontinue food avoidance: Tucker nut, cashew, pistachio, gluten, Journal dietary and [...] Management) * Billing Information: * Visit Code: 41346 Office Visit, Est Pt., Level 3. Modifiers: 25 * Procedure Codes: G8427 DOC MEDS VERIFIED W/[place]. [address] Bernie Jose Incident-to. Images * 06/09/2024 patch test 3 * Electronically signed by Amairani Jose PA-C, [facility] on 06/09/2024 at 09:35 AM BUS OR TRUCK GARAGE MECHANIC Sign off status: Completed true * Provider: Jalen Joes PA-C Date: 08/09/2023 Generated for Rosmery kimball/Preeti/Derick on: 0 10/21/2024 02:55 PM CDT History and Physical Notes * HPI (History [...]
--- OUTSIDE RECORDS SUMMARY | 2024-10-21 14:56 | XMS_ITS | Encounter Summary ---
Author Organization [facility] Address [address] [place] [address] Phone Care Team Providers Care Can Filler Name Role Phone Ryan Ceballos MD Primary Care Provid er Elisabet Stoddard MD Unavailable [phone] Encounter Details Date Type Department Care Team (Late st Contact Info) Description 09/17/2024 Results Follow-Up [facility] Gasteroenterology [address] [facility] Advanced Medicine 12th [place] [address] [place] [address] Jorge Crespo MD [address] [facility] [address] [place] [address] Social History Tobacco Use Types Packs/Day Years [...] on file Legal Sex Female 2:54 AM MODEL ENGINE MECHANIC Gender Identity Not on file Sexual Orientation Not on file documented as of this encounter Plan of Treatment Not on file documented as of this encounter Visit Diagnoses Not on filedocumented in this encounter Care Teams Can Filler Relationship Specialty Start Date End Date Ryan Ceballos MD [address] [place] [address] PCP - General 02/22/21 Elisabet Stoddard MD [address] [address] Referring Physician Gynecology 04/01/24 documented as of this encounter
== END 2024-10-21 12:56 | disposition home or self-care (01) ==
PROVIDERS: PCP Family Medicine; Visit Provider Internal Medicine
DX: E04.2 Nontoxic multinodular goiter (principal)
CPT/HCPCS: 10005; 88172; 88173; 88305